=== PATIENT | male | born 1960 | race Caucasian/White ===

== ENCOUNTER 2021-01-01 14:25 | Inpatient (IN) | payer BC, OTHER ==
[~2021-01-01] VITALS: Ht 175 cm; Wt 100.9 kg
--- NOTE | 2021-01-01 14:32 | ED Chest Pain ---
General Stated Complaint: CHEST PAIN Source: patient History of Present Illness Date Seen by Provider: Jan 01, 2021 Time Seen by Provider: 14:32 Initial Comments 60-year-old male presents with chest pain. Patient reports he has been having chest pain on and off for about a week. He is currently not having any chest pain at this time. Patient reports he had chest pain about an hour ago but is resolved. Reports that if he belches it gets better. Patient has no cardiac history. He is diabetic, history of hypertension. Reports his hypertension is controlled with medication. Patient reports that he is here helping his son up at [employer] on a house. Patient was brought in by EMS. Patient received 324 mg aspirin at the outpatient clinic. Allergies and Home Medications Allergies Coded Allergies: No Known Drug Allergies (Unverified , 01/01/21) Patient Home Medication List Home Medication List Reviewed: Yes Review of Systems Review of Systems Constitutional: No chills, No fever EENTM: No Symptoms Reported Respiratory: Denies Cough, Denies Shortness of Air Cardiovascular: See HPI, Chest Pain Gastrointestinal: No Symptoms Reported Genitourinary: No Symptoms Reported Musculoskeletal: no symptoms reported Skin: no symptoms reported Psychiatric/Neurological: No Symptoms Reported Endocrine: No Symptoms Reported Hematologic/Lymphatic: No Symptoms Reported Past Iojfycw-Aomsin-Ixvzvf Hx Past Med/Social Hx: Reviewed Nursing Past Med/Soc Hx Physical Exam Vital Signs Vital Signs - First Documented 01/01/21 01/01/21 14:30 14:55 Temp 36.9 Pulse 92 Resp 20 B/P (MAP) 162/91 (114) Pulse Ox 94 O2 Delivery Room Air O2 Flow Rate 2.00 Capillary Refill : Height, Weight, BMI Height: '" Weight: lbs. oz. kg; BMI Method: General Appearance: No Apparent Distress, WD/WN HEENT: PERRL/EOMI Neck: Non Tender, Supple Respiratory: Lungs Clear, Normal Breath Sounds Cardiovascular: Regular Rate, Rhythm, No Edema Gastrointestinal: Non Tender, Soft Extremity: Normal Capillary Refill, Normal Inspection Neurologic/Psychiatric: Alert, Oriented x3, No Motor/Sensory Deficits, machine stemmer II- XII Norm as Tested Progress/Results/Core Measures Results/Orders Lab Results Laboratory Tests Test 01/01/21 14:35 Range/Units White Blood Count 7.9 4.3-11.0 10^3/uL Red Blood Count 5.23 4.30-5.52 10^6/uL Hemoglobin 14.8 13.3-17.7 g/dL Hematocrit 45 40-54 % Mean Corpuscular Volume 86 80-99 fL Mean Corpuscular Hemoglobin 28 25-34 pg Mean Corpuscular Hemoglobin Concent 33 32-36 g/dL Red Cell Distribution Width 12.5 10.0-14.5 % Platelet Count 196 130-400 10^3/uL Mean Platelet Volume 11.0 9.0-12.2 fL Immature Granulocyte % (Auto) 0 % Neutrophils (%) (Auto) 71 42-75 % Lymphocytes (%) (Auto) 19 12-44 % Monocytes (%) (Auto) 9 0-12 % Eosinophils (%) (Auto) 0 0-10 % Basophils (%) (Auto) 0 0-10 % Neutrophils # (Auto) 5.6 1.8-7.8 10^3/uL Lymphocytes # (Auto) 1.5 1.0-4.0 10^3/uL Monocytes # (Auto) 0.7 0.0-1.0 10^3/uL Eosinophils # (Auto) 0.0 0.0-0.3 10^3/uL Basophils # (Auto) 0.0 0.0-0.1 10^3/uL Immature Granulocyte # (Auto) 0.0 0.0-0.1 10^3/uL Prothrombin Time 12.9 12.2-14.7 SEC INR Comment 0.9 0.8-1.4 Activated Partial Thromboplast Time 28 24-35 SEC Sodium Level 134 L 135-145 MMOL/L Potassium Level 4.3 3.6-5.0 MMOL/L Chloride Level 99 98-107 MMOL/L Carbon Dioxide Level 24 21-32 MMOL/L Anion Gap 11 5-14 MMOL/L Blood Urea Nitrogen 22 H 7-18 MG/DL Creatinine 1.16 0.60-1.30 MG/DL Estimat Glomerular Filtration Rate > 60 BUN/Creatinine Ratio 19 Glucose Level 520 *H 70-105 MG/DL Calcium Level 9.4 8.5-10.1 MG/DL Corrected Calcium 9.6 8.5-10.1 MG/DL Magnesium Level 1.8 1.6-2.4 MG/DL Total Bilirubin 1.6 H 0.1-1.0 MG/DL Aspartate Amino Transf (AST/SGOT) 44 H 5-34 U/L Alanine Aminotransferase (ALT/SGPT) 21 0-55 U/L Alkaline Phosphatase 94 40-136 U/L Myoglobin 107.6 H 10.0-92.0 NG/ML Troponin I 9.779 *H <0.028 NG/ML Total Protein 7.7 6.4-8.2 GM/DL Albumin 3.8 3.2-4.5 GM/DL My Orders Orders - MONTANA,HUY L DO Cbc With Automated Diff (01/01/21 14:32) Magnesium (01/01/21 14:32) Ekg Tracing (01/01/21 14:32) Comprehensive Metabolic Panel (01/01/21 14:32) Myoglobin Serum (01/01/21 14:32) Protime With Inr (01/01/21 14:32) Partial Thromboplastin Time (01/01/21 14:32) O2 (01/01/21 14:32) Monitor-Rhythm Ecg Trace Only (01/01/21 14:32) Lipid Panel (01/02/21 06:00) Ed Iv/Invasive Line Start (01/01/21 14:32) Troponin I (01/01/21 14:32) Heparin (Bolus Per Protocol) (Heparin (B (01/01/21 14:43) Heparin (Bolus Per Protocol) (Heparin (B (01/01/21 15:00) Clopidogrel Tablet (Plavix Tablet) (01/01/21 15:00) Clopidogrel Tablet (Plavix Tablet) (01/01/21 14:43) Lidocaine 1% Inj 20 Ml (Xylocaine 1% Inj (01/01/21 14:48) Midazolam Injection (Versed Injection) (01/01/21 14:48) Fentanyl Injection (Sublimaze Injection (01/01/21 14:48) Heparin (Bolus Per Protocol) (Heparin (B (01/01/21 14:49) Ns Iv 1000 Ml (Sodium Chloride 0.9%) (01/01/21 14:49) Heparin ([facility]) (Heparin ([facility])) (01/01/21 14:49) Medications Given in ED Current Medications Medications Dose Ordered Sig/Ginger Route Start Time Stop Time Status Last Admin Dose Admin Clopidogrel Bisulfate 300 mg ONCE ONCE PO 01/01/21 15:00 01/01/21 15:01 DC 01/01/21 14:52 300 MG Vital Signs/I&O 01/01/21 01/01/21 01/01/21 14:30 14:30 14:55 Temp 36.9 36.9 Pulse 92 91 Resp 20 20 B/P (MAP) 162/91 (114) 154/90 Pulse Ox 94 97 O2 Delivery Room Air Room Air Nasal Cannula O2 Flow Rate 2.00 Progress Progress Note : Progress Note Patient with an EKG that was obtained at the outpatient clinic. New EKG shows significant new elevations in V1 through V5. Contacted Dr. Stallings. We will give him Plavix 100 mg, heparin. Patient was given 324 aspirin just prior to arrival. Patient will be sent to the [facility] for immediate revascularization Comment Significant ST elevation in V1 through V5, acute ME Departure Communication (Admissions) Time/Spoke to Admitting Phy: 14:45 Prepare for phlebotomist lab assistant Impression Primary Impression: ST elevation (STEMI) myocardial infarction Qualified Codes: I21.3 - ST elevation (STEMI) myocardial infarction of unspecified site Disposition: ADMITTED INPATIENT Condition: Critical Admissions Decision to Admit Reason: Admit from ER (General) Decision to Admit/Date: Jan 01, 2021 Time/Decision to Admit Time: 14:51 HUY MONTANA DO Jan 01, 2021 14:32
[2021-01-01] MEDS ORDERED: CLOPIDOGREL 300 MG (PLAVIX) TABLET PO ONE ×3 (14:43→16:01)
[2021-01-01] MEDS ORDERED: HEParin 1000 UNIT/ML (10ML VIAL) FOR BOLUS ONE ×2 (14:43→14:49)
[2021-01-01 14:44] LABS: BASOPHILS % (AUTO) 0 % (0-10); EOSINOPHILS % (AUTO) 0 % (0-10); HEMATOCRIT 45 % (40-54); HEMOGLOBIN 14.8 g/dL (13.3-17.7); LYMPHOCYTES # (AUTO) 1.5 10^3/uL (1.0-4.0); LYMPHOCYTES % (AUTO) 19 % (12-44); MEAN CORPUSCULAR HEMOGLOBIN 28 pg (25-34); MEAN CORPUSCULAR HGB CONC 33 g/dL (32-36); MEAN CORPUSCULAR VOLUME 86 fL (80-99); MONOCYTES # (AUTO) 0.7 10^3/uL (0.0-1.0); MONOCYTES % (AUTO) 9 % (0-12); NEUTROPHILS # (AUTO) 5.6 10^3/uL (1.8-7.8); NEUTROPHILS % (AUTO) 71 % (42-75); PLATELET COUNT 196 10^3/uL (130-400); WHITE BLOOD COUNT 7.9 10^3/uL (4.3-11.0)
[2021-01-01] MEDS ORDERED: MIDAZOLAM 5 MG/5 ML (VERSED) VIAL ONE (14:48)
[2021-01-01] MEDS ORDERED: fentaNYL INJ 100 MCG/2 ML AMP ONE ×2 (14:48→18:04)
[2021-01-01] MEDS ORDERED: LIDOCAINE 1% INJ 20 ML 20 ML VIAL ONE ×2 (14:48→14:58)
[2021-01-01] MEDS ORDERED: NS IV 1000 ML 1,000 ML ONE (14:49)
[2021-01-01] MEDS ORDERED: HEParin (CATH LAB) 2,000 ML IV ONE (14:49)
[2021-01-01 14:56] LABS: INR 0.9 (0.8-1.4); PROTHROMBIN TIME PATIENT 12.9 SEC (12.2-14.7)
[2021-01-01] MEDS ORDERED: HEParin 1000 UNIT/ML (10ML VIAL) FOR BOLUS IV SCH (15:00)
[2021-01-01 15:04] LABS: ALANINE AMINOTRANSFERASE 21 U/L (0-55); ALBUMIN 3.8 GM/DL (3.2-4.5); ALKALINE PHOSPHATASE 94 U/L (40-136); BILIRUBIN,TOTAL 1.6 MG/DL (0.1-1.0); BUN/CREATININE RATIO 19; CALCIUM 9.4 MG/DL (8.5-10.1); CARBON DIOXIDE 24 MMOL/L (21-32); CHLORIDE 99 MMOL/L (98-107); CREATININE SERUM 1.16 MG/DL (0.60-1.30); GFR ESTIMATED > 60; MAGNESIUM 1.8 MG/DL (1.6-2.4); POTASSIUM 4.3 MMOL/L (3.6-5.0); SODIUM 134 MMOL/L (135-145); TOTAL PROTEIN 7.7 GM/DL (6.4-8.2)
[2021-01-01] MEDS ORDERED: EPTIFIBATIDE BOLUS 20 ML IV ONE (15:10)
[2021-01-01] MEDS ORDERED: DOPamine DRIP 0 ML IV ONE (15:11)
[2021-01-01] MEDS ORDERED: inSUlin (REGULAR) HUMAN 1 UNIT/0.01 ML (CHARGE PER UNIT) ONE (15:12)
[2021-01-01 15:15] LABS: GLUCOSE 520 MG/DL (70-105)
[2021-01-01] MEDS ORDERED: NITRO DRIP 25000 MCG/D5W 250 ML IV ONE (16:27)
[2021-01-01] MEDS ORDERED: PATIENT MAY USE OWN MEDS, ALL PO SCH (16:30)
--- NOTE | 2021-01-01 16:43 | Cardiology History & Physical ---
HPI-Cardiology Cardiology H&P Date of Admission 01-01-21 Primary Care Physician Ada,Local Physician Attending Physician Saleem Dumont MD, MA FACP [facility] Consulting Physician MARIA R CC: Chest discomfort HPI 60 yo man who has been having intermittent chest discomfort for the last several days that have been lasting up to several hours. Discomfort has varied between m ild and severe, located in mid chest, feeling of pressure, radiating to back and shoulders, not associated with other symptoms. Was worse today. Came to urgent care and was sent to ED. Found to have marked ST elevation in anterior leads. Underwent emergency card cath and primary intervention to severely diseased prox LAD. Denies shortness of breath or palp or syncope. Denies n/v/d. Denies focal weakness. Notes gen malaise. Review of Systems-Cardiology Review of Systems Constitutional: malaise, tiredness; No weight loss, No weight gain Eyes: No vision change Ears/Nose/Throat: No ear discharge, No nasal drainage, No recent hearing loss Respiratory: As described under HPI Cardiovascular: As described under HPI Gastrointestinal: As described under HPI Genitourinary: No dysuria, No hematuria Musculoskeletal: No back pain, No joint pain Skin: No rash, No ulcerations Psychiatric/Neurological: No seizure, No focal weakness, No syncope Hematologic: No bleeding abnormalities AVO-Oxgebk-Zplyho Hx Patient Social History Smoking Status: Never a Smoker Have you traveled recently?: No Alcohol Use?: No Pt feels they are or have been: No Past Medical History PMH As described under Assessment. Family Medical History Family Medical History: Father had RI in his 70s. No other family h/o cardiac problems reported Allergies and Home Medications Allergies Coded Allergies: No Known Drug Allergies (Unverified , 01/01/21) Patient Home Medication List Home Medication List Reviewed: Yes Physical Exam-Cardiology Physical Exam Vital Signs/I&O 01/01/21 01/01/21 01/01/21 01/01/21 14:30 14:30 14:55 16:22 Temp 36.9 36.9 Pulse 92 91 85 Resp 20 20 9 B/P (MAP) 162/91 (114) 154/90 120/92 (101) Pulse Ox 94 97 99 O2 Delivery Room Air Room Air Nasal Cannula Nasal Cannula O2 Flow Rate 2.00 2.00 Capillary Refill : Less Than 3 Seconds Constitutional: AAO x 3, well-developed, well-nourished HEENT: EOMI, hearing is well preserved; No xanthelasmas are seen Neck: carotid pulses are 2 + bilaterally, with good upstrokes Respiratory: No accessory muscle use; other (good, bilateral air entry) Cardiovascular: regular rate-rhythm, S1 and S2, systolic murmur (soft [place] at card base) Gastrointestinal: No tender; soft; No guarding, No rebound; audible bowel sounds Extremities: No clubbing, No cyanosis, No significant edema Neurologic/Psychiatric: oriented x 3, other (moves all limbs equally) Skin: warm/dry; No cool, No rash on exposed areas, No ulcerations on exposed areas Data Review Labs Laboratory Tests 01/01/21 14:35: White Blood Count 7.9, Red Blood Count 5.23, Hemoglobin 14.8, Hematocrit 45, Mean Corpuscular Volume 86, Mean Corpuscular Hemoglobin 28, Mean Corpuscular Hemoglobin Concent 33, Red Cell Distribution Width 12.5, Platelet Count 196, L[place] n Platelet Volume 11.0, Immature Granulocyte % (Auto) 0, Neutrophils (%) (Auto) 71, Lymphocytes (%) (Auto) 19, Monocytes (%) (Auto) 9, Eosinophils (%) (Auto) 0, Basophils (%) (Auto) 0, Neutrophils # (Auto) 5.6, Lymphocytes # (Auto) 1.5, Monocytes # (Auto) 0.7, Eosinophils # (Auto) 0.0, Basophils # (Auto) 0.0, Immature Granulocyte # (Auto) 0.0, Prothrombin Time 12.9, INR Comment 0.9, Activated Partial Thromboplast Time 28, Sodium Level 134L, Potassium Level 4.3, Chloride Level 99, Carbon Dioxide Level 24, Anion Gap 11, Blood Urea Nitrogen 22H, Creatinine 1.16, Estimat Glomerular Filtration Rate > 60, BUN/Creatinine Ratio 19, Glucose Level 520*H, Calcium Level 9.4, Corrected Calcium 9.6, Magnesium Level 1.8, Total Bilirubin 1.6H, Aspartate Amino Transf (AST/SGOT) 44H , Alanine Aminotransferase (ALT/SGPT) 21, Alkaline Phosphatase 94, Myoglobin 107.6H, Troponin I 9.779*H, Total Protein 7.7, Albumin 3.8 Laboratory Tests 01/01/21 14:35 A/P-Cardiology Assessment/Admission Diagnosis CAD - Ac ant wall STEMI on 01-01-21 - Card cath on 01-01-21: 99% prox and mid LAD stented with Karlene 3.0 x 28 (proximal) and 3.0 x 12 (mid vessel), mild plaque LCX, mild to mod plaque of dominant RCA, LVEDP 28 mmHg, LVEF approx 40%, apical hypokinesis Cardiac risk factors - DM II, uncontrolled - H/o hypertension Admission Status: Inpatient Order (span 2 midnights) Reason for Inpatient Admission: Ac ant wall STEMI Discussion and Recomendations * DAPT * BB * Statin * Hosp consult for management of diabetes (Dr Castrejon called) * Monitor labs * I spoke with him and his family and answered their questions Clinical Quality Measures AMI/AHF: ASA po Prior to arrival: SALEEM Gregorio MD FACP [facility] Jan 01, 2021 16:43
[2021-01-01] MEDS ORDERED: ACETAMINOPHEN 325 MG TABLET PO PRN (16:45)
[2021-01-01] MEDS: NS IV 1000 ML 1,000 ML IV SCH (16:47)
[2021-01-01] MEDS ORDERED: INSU100I14 SQ (17:20)
[2021-01-01] MEDS ORDERED: ATOR40TA70 PO (17:20)
[2021-01-01] MEDS ORDERED: FINA5TAB6 PO (17:20)
[2021-01-01] MEDS ORDERED: LISI10TA25 PO (17:20)
[2021-01-01] MEDS ORDERED: INSU100I29 SQ (17:20)
[2021-01-01] MEDS ORDERED: PREG75CA75 PO (17:20)
[2021-01-01] MEDS ORDERED: TMSL.4C PO (17:20)
[2021-01-01] MEDS ORDERED: ESCI-2 PO (17:20)
[2021-01-01] MEDS ORDERED: EMPA10TA PO (17:20)
[2021-01-01] MEDS ORDERED: ATROPINE INJECTION 1 MG/10 ML SYR (ABBOTT) ONE (18:04)
[2021-01-01] MEDS ORDERED: morphine INJ 4 MG/ML 1 ML (VIAL/SYRINGE) ONE (18:35)
[2021-01-01] MEDS ORDERED: NITROGLYCERIN 2% OINT 1 GM UNIT DOSE PACKET ONE (18:35)
[2021-01-01] MEDS: morphine INJ 4 MG/ML 1 ML (VIAL/SYRINGE) IVP PRN ×4 (18:42→23:21)
[2021-01-01] MEDS: NITROGLYCERIN 2% OINT 1 GM UNIT DOSE PACKET TOP SCH (18:42)
--- NOTE | 2021-01-01 18:52 | CARDIAC CATHETERIZATION ---
DATE OF SERVICE: 01/01/2021 CARDIAC CATHETERIZATION AND CORONARY INTERVENTION REPORT The patient is a 60-year-old man who presented with acute anterior wall ST elevation myocardial infarction. Emergency cardiac catheterization was carried out. DESCRIPTION OF PROCEDURE: He was brought to the cardiac catheterization laboratory. The right groin was prepared and draped in the usual sterile fashion. Lidocaine 1% was used for local anesthesia. Modified Seldinger technique was used to advance a 6-[place] sheath in the right femoral artery. A 6-[place] JL4 guide catheter was used that did not engage the left coronary artery adequately. A 6-[place] JL3.5 guide catheter engaged fairly well. Left main coronary artery is short. The guide was going selectively into the left circumflex. We completed the diagnostic procedure and then carried out percutaneous intervention to the left anterior descending that is described below. Following completion of intervention to the left anterior descending, we carried out angiography of the right coronary artery with a 6-[place] JR4 diagnostic catheter. We then carried out left heart catheterization and left ventricular angiography with a 6-[place] pigtail catheter. We pulled back the pigtail catheter to the aortic root and aortic arch. An aortic root angiography was performed. The catheter was then removed. The sheath was sutured in place and the patient was transferred to the floor for manual sheath removal. PERCUTANEOUS INTERVENTION TO THE LEFT ANTERIOR DESCENDING: We used JL3.5 guide catheter that was selectively engaging the left circumflex. We were able to wire the left anterior descending and then advance the guide over the wire directed more towards the left anterior descending. We carried out balloon angioplasty of 99% stenosis in the proximal left anterior descending with Trek 2.5 x 20 mm balloon. This was then removed. Good antegrade flow was established with this procedure. We then stented the long diseased segment with Karlene 3.0 x 28 mm stent that was deployed at 18 atmospheres. Subsequent angiography revealed 0% residual stenosis at the previous site of 99% stenosis. However, there appeared to be a 70% stenosis in the mid left anterior descending artery to which we carried out further stenting with Karlene 3.0 x 12 mm stent. The stents do not overlap. At the end, normal antegrade flow was restored to the left anterior descending. The patient tolerated the procedure well. He had received 5000 units of intravenous heparin in the emergency room. In the chemical lab technician, he received 2000 units of additional intravenous heparin and double bolus of Integrilin. 300 mg of oral Plavix and 324 mg oral aspirin were given in the emergency room. Following completion of the coronary interventional procedure, he received additional 300 mg of Plavix. HEMODYNAMICS: Left ventricular end-diastolic pressure following coronary angiography and coronary intervention was 29 mmHg. There was no significant pressure gradient on pullback across the aortic valve. Ascending aortic pressure was 112/63 with a mean of 85 mmHg. LEFT VENTRICULAR ANGIOGRAPHY: Left ventricular angiography was carried out in the right anterior oblique projection. Global left ventricular systolic function is impaired. There is apical hypokinesis. Left ventricular ejection fraction is approximately 40%. CORONARY ANGIOGRAPHY: Left main coronary artery is short. Left anterior descending artery had 99% proximal stenosis and a 70% mid vessel stenosis. The proximal stenosis was stented with Karlene 3.0 x 28 mm stent and the mid vessel stenosis was stented with Karlene 3.0 x 12 mm stent. The results were good and there were no significant residual stenoses. The left circumflex artery has mild plaques. Right coronary artery is dominant and has stenosis of 30% to 40% in its proximal and distal portions. AORTIC ROOT ANGIOGRAPHY: Aortic root angiography did not indicate any ascending aortic aneurysm or dissection. The aortic valve exhibit good leaflet excursion. No significant aortic regurgitation was seen. The coronary arteries were identified and did not seem to have significant obstructive disease at the time of this angiogram because the left anterior descending artery had already been stented. CONCLUSIONS: 1. Coronary artery disease primarily consisting of 99% proximal stenosis and 70% mid vessel stenosis of the left anterior descending to which successful stenting was carried out (Karelne 3.0 x 28 mm to the proximal and Karlene 3.0 x 12 mm to the mid vessel lesion, nonoverlapping). The left circumflex and right coronary arteries have mild to moderate disease. Right coronary artery is dominant. 2. Impairment of global left ventricular systolic function with apical hypokinesis. Left ventricular ejection fraction of 40%. 3. Elevated left ventricular end-diastolic pressure. DISCUSSION AND RECOMMENDATIONS: Dual antiplatelet therapy has been initiated. Beta mark therapy and DAISY inhibitor therapy and statin therapy will be provided as tolerated. The patient has been hospitalized. Job ID: [id number] DocumentID: [id number] Dictated Date: 01/01/2021 17:56:33 Conveyor Man Date: 01/01/2021 18:51:37 Dictated By: SORAYA MAYO MD, MA, FACP, FACC,
[2021-01-01] MEDS: inSUlin ASPART (NovoLOG) 1 UNIT/0.01 ML (CHARGE PER UNIT) SC SCH (23:22)
[2021-01-02] MEDS: NITROGLYCERIN 2% OINT 1 GM UNIT DOSE PACKET TOP SCH ×4 (00:05→18:01)
[2021-01-02] MEDS: morphine INJ 4 MG/ML 1 ML (VIAL/SYRINGE) IVP PRN ×4 (04:13→19:27)
[2021-01-02] MEDS: ONDANSETRON 4 MG/2 ML (SDV) Z0FRAN IVP PRN ×3 (04:22→20:57)
[2021-01-02 04:23] LABS: HEMOGLOBIN 13.2 g/dL (13.3-17.7); MEAN PLATELET VOLUME 10.9 fL (9.0-12.2); WHITE BLOOD COUNT 10.4 10^3/uL (4.3-11.0)
[2021-01-02 04:46] LABS: BUN/CREATININE RATIO 23; CALCIUM 8.6 MG/DL (8.5-10.1); CARBON DIOXIDE 19 MMOL/L (21-32); CHLORIDE 103 MMOL/L (98-107); CHOLESTEROL 124 MG/DL (< 200); CREATININE SERUM 0.86 MG/DL (0.60-1.30); GFR ESTIMATED > 60; GLUCOSE 256 MG/DL (70-105); HDL CHOLESTEROL 36 MG/DL (40-60); MAGNESIUM 1.8 MG/DL (1.6-2.4); PHOSPHORUS 4.1 MG/DL (2.3-4.7); POTASSIUM 4.2 MMOL/L (3.6-5.0); SODIUM 135 MMOL/L (135-145); TRIGLYCERIDES 82 MG/DL (<150); VLDL CHOLESTEROL 16 MG/DL (5-40)
[2021-01-02] MEDS: KCL 20 MEQ TAB (K-DUR) PO SCH (05:06)
[2021-01-02] MEDS: MAGNESIUM 1 GM/100 ML IVPB 100 ML IV SCH (05:06)
[2021-01-02] MEDS: POTASSIUM CL 10MEQ/50ML IVPB 50 ML IV SCH (05:06)
[2021-01-02] MEDS: inSUlin ASPART (NovoLOG) 1 UNIT/0.01 ML (CHARGE PER UNIT) SC SCH ×7 (06:05→20:57)
[2021-01-02] MEDS ORDERED: inSUlin ASPART (NovoLOG) 1 UNIT/0.01 ML (CHARGE PER UNIT) SC SCH (07:00)
[2021-01-02] MEDS: CLOPIDOGREL 75 MG (PLAVIX) TABLET PO SCH (07:53)
[2021-01-02] MEDS: ASPIRIN 81 MG CHEW (CHILDREN'S ASA) PO SCH (07:53)
[2021-01-02] MEDS: NS IV 1000 ML 1,000 ML IV SCH (07:55)
[2021-01-02] MEDS ORDERED: ENOXAPARIN 40 MG/0.4 ML (LOVENOX) SYR SC SCH ×2 (09:00→22:45)
[2021-01-02] MEDS: FINASTERIDE (PROSCAR) 5 MG TAB PO SCH (09:28)
[2021-01-02] MEDS: PREGABALIN 75 MG (LYRICA) CAP PO SCH ×2 (09:28→20:57)
[2021-01-02] MEDS: TAMSULOSIN 0.4 MG (FLOMAX) CAP PO SCH ×2 (09:29→16:26)
[2021-01-02] MEDS ORDERED: ASPI-1238 PO (09:32)
[2021-01-02] MEDS: lisINopril 5 MG (PRINIVIL) TABLET PO SCH (10:11)
--- NOTE | 2021-01-02 11:02 | Consultation - Hospitalist ---
HPI History of Present Illness: HPI/Chief Complaint Edgardo Villafana is a 60-year-old male with past medical history of hypertension, hyperlipidemia, insulin-dependent diabetes, BPH, who presented with chest pain and was admitted with ST elevation RI. He was taken to the [facility] and had two stents placed. Upon my examination he is feeling much better. He denies chest pain. He denies shortness of breath. He denies diaphoresis. He denies nausea and vomiting. He did have an episode of vomiting last night. Source: patient Exam Limitations: no limitations Date Seen 01/02/21 Attending Physician Saleem Dumont MD Facp [facility] PCP No,Local Physician Referring Physician Date of Admission Jan 01, 2021 at 16:20 Home Medications & Allergies Home Medications Reviewed patient Home Medication Reconciliation performed by pharmacy medication reconciliations foundry technician and/or nursing. Patients Allergies have been reviewed. Allergies Allergies Coded Allergies No Known Drug Allergies (Unverified01/01/21) Past Ricbhuu-Rgjaul-Qmkisp Hx Past Med/Social Hx: Reviewed Nursing Past Med/Soc Hx Patient Social History Smoking Status: Never a Smoker Recent Foreign Travel: No Contact w/other who traveled: No Recent Infectious Disease Expo: No Review of Systems Constitutional: no symptoms reported EENTM: no symptoms reported Respiratory: no symptoms reported Cardiovascular: chest pain Genitourinary: no symptoms reported Musculoskeletal: no symptoms reported Skin: no symptoms reported Psychiatric/Neurological: No Symptoms Reported Physical Exam Physical Exam Vital Signs Vital Signs - First Documented 01/01/21 01/01/21 14:30 14:55 Temp 36.9 Pulse 92 Resp 20 B/P (MAP) 162/91 (114) Pulse Ox 94 O2 Delivery Room Air O2 Flow Rate 2.00 Capillary Refill : Less Than 3 Seconds Height, Weight, BMI Height: '" Weight: lbs. oz. kg; 32.58 BMI Method: General Appearance: No Apparent Distress, WD/WN HEENT: PERRL/EOMI, Pharynx Normal Neck: Normal Inspection, Supple Respiratory: Lungs Clear, Normal Breath Sounds, No Respiratory Distress Cardiovascular: Regular Rate, Rhythm, No Edema, No Murmur Gastrointestinal: Normal Bowel Sounds, Non Tender, Soft Extremity: Normal Inspection, Non Tender, No Pedal Edema Neurologic/Psychiatric: Alert, Oriented x3, No Motor/Sensory Deficits, Normal Mood/Affect Skin: Normal Color, Warm/Dry Results Results/Procedures Labs Laboratory Tests 01/01/21 14:35 01/02/21 03:55 Patient resulted labs reviewed. Imaging: Reviewed Imaging Report Assessment/Plan Assessment and Plan Assess & Plan/Chief Complaint STEMI CAD HTN HLD EKG revealed STEMI Cardiology consulted, appreciate assistance Left heart cath revealed LAD stenosis and two stents were placed Continue ASA Started on Plavix Increased Lipitor Started on Metoprolol Continue Lisinopril T2DM with hyperglycemia Levemir Novolog with meals Sliding scale insulin BPH Continue home meds Obesity Clinically significant, no acute management needs DVT prophylaxis: Lovenox Diagnosis/Problems Diagnosis/Problems (1) Acute ST elevation myocardial infarction (STEMI) of anterior wall Status: Acute (2) CAD (coronary artery disease) Status: Acute Qualifiers: Coronary Disease-Associated Artery/Lesion type: [place] artery [place] vs. transplanted heart: [place] heart (3) HTN (hypertension) Status: Chronic Qualifiers: Hypertension type: essential hypertension Qualified Codes: I10 - Essential (primary) hypertension (4) HLD (hyperlipidemia) Status: Chronic (5) Obesity Status: Chronic Qualifiers: Obesity type: due to excess calories Serious obesity comorbidity presence: with serious comorbidity Body mass index: BMI 34.0-34.9 (6) BPH (benign prostatic hyperplasia) Status: Chronic (7) T2DM (type 2 diabetes mellitus) Status: Acute Qualifiers: Diabetes mellitus usp insulin use: with oil heaterman use Diabetes mellitus complication status: with hyperglycemia Qualified Codes: E11.65 - Type 2 diabetes mellitus with hyperglycemia; Z79.4 - long-term (current) use of insulin Clinical Quality Measures AMI/AHF: ASA po Prior to arrival: ANDER Giraldo MD Jan 02, 2021 11:02
[2021-01-02 11:48] LABS: ABG BASE EXCESS 0.1 MMOL/L (-2.5-2.5); ABG OXYGEN SATURATION 81 % (94-100); ABG PCO2 42 MMHG (35-45); ABG PH 7.38 (7.37-7.43); ABG PO2 51 MMHG (79-93); ABG TCO2 25.9 MMOL/L (21.0-31.0); ALLENS TEST YES-POS
[2021-01-02 11:49] LABS: INSPIRED O2 15 L; PATIENT TEMP 36.6; VENTILATOR NO
[2021-01-02] MEDS ORDERED: FUROSEMIDE 40 MG/4 ML INJ (LASIX) ONE (11:51)
--- NOTE | 2021-01-02 11:51 | Diagnostic Imaging Report ---
Indication: Hypoxemia Portable chest 11:40 AM Heart size and pulmonary vascularity are normal. Lungs are clear IMPRESSION: Negative chest. There are no effusions or pneumothoraces. Dictated by: Dictated on workstation # [id number]
[2021-01-02] MEDS ORDERED: FUROSEMIDE 40 MG/4 ML INJ (LASIX) IVP ONE ×2 (12:00→22:45)
[2021-01-02] MEDS ORDERED: PANTOPRAZOLE 40 MG (PROTONIX) VIAL IV NR (14:45)
[2021-01-02] MEDS: IBUPROFEN 600 MG (MOTRIN) TAB PO SCH ×2 (14:53→20:57)
--- NOTE | 2021-01-02 15:21 | Progress Note - Cardiology ---
Cardiology SOAP Progress Note Subjective: Continues to have episodes of chest pain, sometimes worse with deep breathing No palp or syncope Mild shortness of breath No focal weakness Gen malaise Intermittent nausea and vomiting Objective: I&O/Vital Signs 01/02/21 01/02/21 01/02/21 01/02/21 04:00 04:11 05:00 06:00 Pulse 79 78 76 Resp 10 23 7 B/P (MAP) 101/66 (78) 91/60 (70) 95/60 (72) Pulse Ox 91 96 90 O2 Delivery Nasal Cannula Nasal Cannula Nasal Cannula Nasal Cannula O2 Flow Rate 2.00 2.00 2.00 2.00 01/02/21 01/02/21 01/02/21 01/02/21 06:12 07:00 07:00 07:21 Temp 37.1 Pulse 70 76 Resp 13 B/P (MAP) 159/88 (111) Pulse Ox 95 90 O2 Delivery Nasal Cannula Nasal Cannula O2 Flow Rate 2.00 2.00 01/02/21 01/02/21 01/02/21 01/02/21 07:52 08:00 08:00 09:00 Temp 36.4 Pulse 74 73 Resp 15 18 B/P (MAP) 103/61 (75) 92/58 (69) Pulse Ox 92 90 O2 Delivery Nasal Cannula Nasal Cannula Nasal Cannula Nasal Cannula O2 Flow Rate 2.00 2.00 2.00 2.00 01/02/21 01/02/21 01/02/21 01/02/21 10:00 11:00 11:32 11:46 Temp 36.6 Pulse 74 73 Resp 27 B/P (MAP) 95/62 (73) 93/61 (72) Pulse Ox 89 91 O2 Delivery Nasal Cannula Nasal Cannula OxyMask O2 Flow Rate 2.00 2.00 15.00 01/02/21 01/02/21 01/02/21 01/02/21 12:00 12:00 12:05 12:44 Pulse 73 71 Resp 19 B/P (MAP) 107/79 (88) Pulse Ox 93 O2 Delivery Vapotherm Vapotherm Vapotherm O2 Flow Rate 40.00 40.00 40.00 100.00 100.00 FiO2 100 01/02/21 01/02/21 01/02/21 13:00 13:51 14:00 Pulse 84 69 Resp 15 22 B/P (MAP) 161/94 (116) 92/61 (71) Pulse Ox 92 93 O2 Delivery Vapotherm Vapotherm Vapotherm O2 Flow Rate 40.00 35.00 35.00 100.00 90.00 90.00 01/02/21 00:00 Intake Total 50 ml Output Total 850 ml Balance -800 ml Constitutional: AAO x 3, well-developed, well-nourished Respiratory: No accessory muscle use; other (good, bilateral air entry) Cardiovascular: regular rate-rhythm, S1 and S2, systolic murmur (soft [place] at card base) Gastrointestional: No tender; soft; No guarding, No rebound; audible bowel sounds Extremities: No clubbing, No cyanosis, No significant edema Neurologic/Psychiatric: oriented x 3, other (moves all limbs equally) Skin: warm/dry; No cool, No rash on exposed areas, No ulcerations on exposed areas Results/Procedures: Labs Laboratory Tests 01/01/21 20:44: Glucometer 276H 01/02/21 03:55: White Blood Count 10.4, Red Blood Count 4.72, Hemoglobin 13.2L, Hematocrit 41, Mean Corpuscular Volume 87, Mean Corpuscular Hemoglobin 28, Mean Corpuscular Hemoglobin Concent 32, Red Cell Distribution Width 12.6, Platelet Count 180, Mean Platelet Volume 10.9, Sodium Level 135, Potassium Level 4.2, Chloride Level 103, Carbon Dioxide Level 19L, Anion Gap 13, Blood Urea Nitrogen 20H, Creatinine 0.86, Estimat Glomerular Filtration Rate > 60, BUN/Creatinine Ratio 23, Glucose Level 256H, Calcium Level 8.6, Phosphorus Level 4.1, Magnesium Level 1.8, Troponin I 21.532*H, Triglycerides Level 82, Cholesterol Level 124, LDL Cholesterol Direct 71, VLDL Cholesterol 16, HDL Cholesterol 36L 01/02/21 11:02: Glucometer 268H 01/02/21 11:40: Blood Gas Puncture Site LT RAD, Blood Gas Patient Temperature 36.6, Arterial Blood pH 7.38, Arterial Blood Partial Pressure CO2 42, Arterial Blood Partial Pressure O2 51L, Arterial Blood HCO3 25, Arterial Blood Total CO2 25.9, Arterial Blood Oxygen Saturation 81L, Arterial Blood Base Excess 0.1, Allan Test YES-POS, Blood Gas Ventilator Setting NO, Blood Gas Inspired Oxygen 15 L 01/02/21 13:10: Troponin I 17.208*H Laboratory Tests 01/01/21 14:35 01/02/21 03:55 A/P: Assessment: CAD - Ac ant wall STEMI on 01-01-21 - Card cath on 01-01-21: 99% prox and mid LAD stented with Karlene 3.0 x 28 (proximal) and 3.0 x 12 (mid vessel), mild plaque LCX, mild to mod plaque of dominant RCA, LVEDP 28 mmHg, LVEF approx 40%, apical hypokinesis - persistent ST elevation in ant leads after PCI, 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 LVEF 40% with apical hypokinesis/akinesis on card cath of 01-01-21; LVEF 35-40% with apical hypokinesis/akinesis on echo of 01-02-21 Cardiac risk factors - DM II, uncontrolled - H/o hypertension Plan: * Suspect post-infarction pericarditis. Enzyme pattern is not consistent with a new [place]. Add NSAIDs and also add PPI * Appreciate help from the Hospitalist Sridhar * Keep under close observation * Monitor labs Clinical Quality Measures AMI/AHF: ASA po Prior to arrival: SORAYA Gregorio MD FACP FAC CCDS Jan 02, 2021 15:21
--- NOTE | 2021-01-02 19:40 | Physician Query Clarification ---
"Physician Query-General Query to Physician: The medical record reflects the following clinical scenario: History/Risk factors: STEMI, Obesity Clinical Findings: SpO2 89% on 2L, PaO2 51, RR 20 - 27 Treatment: ICU admission, Supplemental O2 up to 100%, Vapotherm, Question: What condition best reflects the above clinical scenario? Please document response in the Progress notes or Discharge Summary. 1. Acute hypoxic Respiratory failure 2. Other, with explanation of clinical findings 3. Clinically undetermined, no explanation for clinical findings Please remember a lack of response to the above will prompt a phone page by CDI/coding staff. In responding to this query, please exercise your independent professional ju dgment. The purpose of this communication is to more accurately reflect the complexity of your patients condition. The fact that a question is asked does not imply that any particular answer is desired or expected. Thank you for timely response to this clarification. Laura Griffith, MSN, RN RN Specialist-Clinical Doc Improvement CD -Health Info Mgmt Operations [address] [facility] t: [phone] | f: [phone] If you are unable to reach me at my extension, I may be working from home. Please contact me at [phone] PHYSICIAN RESPONSE: Based on the clinical findings in the record, please respond to the query above on this document as an addendum. Physician Response: Physician Response 3 If you have questions please contact: Cisco Network Architect: Ext: Thank you for your time and cooperation. Clinical Media Account Executive/Cisco Network Architect This is a permanent part of the medical record LAURA GRIFFITH Jan 02, 2021 19:40 SORAYA MAYO MD [facility] Jan 03, 2021 14:35"
[2021-01-02] MEDS: FAMOTIDINE 20 MG (PEPCID) TABLET PO SCH (20:57)
[2021-01-02] MEDS ORDERED: DIGOXIN 0.25 MG/ML (LANOXIN) 2 ML AMP IV ONE (23:10)
[2021-01-03] MEDS: POTASSIUM CL 10MEQ/50ML IVPB 50 ML IV SCH ×3 (00:13→04:28)
[2021-01-03] MEDS: inSUlin ASPART (NovoLOG) 1 UNIT/0.01 ML (CHARGE PER UNIT) SC SCH ×9 (01:00→20:50)
[2021-01-03 03:41] LABS: BASOPHILS % (AUTO) 0 % (0-10); EOSINOPHILS % (AUTO) 0 % (0-10); HEMATOCRIT 36 % (40-54); HEMOGLOBIN 11.7 g/dL (13.3-17.7); LYMPHOCYTES # (AUTO) 2.3 10^3/uL (1.0-4.0); LYMPHOCYTES % (AUTO) 23 % (12-44); MEAN CORPUSCULAR HEMOGLOBIN 28 pg (25-34); MEAN CORPUSCULAR HGB CONC 32 g/dL (32-36); MEAN CORPUSCULAR VOLUME 88 fL (80-99); MEAN PLATELET VOLUME 11.7 fL (9.0-12.2); MONOCYTES # (AUTO) 1.2 10^3/uL (0.0-1.0); MONOCYTES % (AUTO) 12 % (0-12); NEUTROPHILS # (AUTO) 6.4 10^3/uL (1.8-7.8); NEUTROPHILS % (AUTO) 64 % (42-75); PLATELET COUNT 171 10^3/uL (130-400)
[2021-01-03 04:05] LABS: ALBUMIN 3.1 GM/DL (3.2-4.5); CHLORIDE 99 MMOL/L (98-107); POTASSIUM 4.5 MMOL/L (3.6-5.0); SODIUM 132 MMOL/L (135-145)
[2021-01-03 04:06] LABS: CALCIUM 8.5 MG/DL (8.5-10.1)
[2021-01-03 04:07] LABS: GLUCOSE 144 MG/DL (70-105); TOTAL PROTEIN 6.4 GM/DL (6.4-8.2)
[2021-01-03 04:09] LABS: BILIRUBIN,TOTAL 1.2 MG/DL (0.1-1.0); CARBON DIOXIDE 22 MMOL/L (21-32)
[2021-01-03 04:11] LABS: ALKALINE PHOSPHATASE 68 U/L (40-136); CREATININE SERUM 1.02 MG/DL (0.60-1.30); GFR ESTIMATED > 60; PHOSPHORUS 3.9 MG/DL (2.3-4.7)
[2021-01-03 04:12] LABS: BUN/CREATININE RATIO 33
[2021-01-03 04:14] LABS: ALANINE AMINOTRANSFERASE 14 U/L (0-55)
[2021-01-03] MEDS: KCL 20 MEQ TAB (K-DUR) PO SCH (04:28)
[2021-01-03] MEDS: MAGNESIUM 1 GM/100 ML IVPB 100 ML IV SCH (04:28)
[2021-01-03] MEDS: ASPIRIN 81 MG CHEW (CHILDREN'S ASA) PO SCH (08:10)
[2021-01-03] MEDS: IBUPROFEN 600 MG (MOTRIN) TAB PO SCH ×3 (08:10→20:41)
[2021-01-03] MEDS: PREGABALIN 75 MG (LYRICA) CAP PO SCH ×2 (08:10→20:41)
[2021-01-03] MEDS: FAMOTIDINE 20 MG (PEPCID) TABLET PO SCH ×2 (08:10→20:41)
[2021-01-03] MEDS: lisINopril 5 MG (PRINIVIL) TABLET PO SCH (08:10)
[2021-01-03] MEDS: PANTOPRAZOLE 40 MG (PROTONIX) TAB PO SCH (08:10)
[2021-01-03] MEDS: CLOPIDOGREL 75 MG (PLAVIX) TABLET PO SCH (08:10)
[2021-01-03] MEDS: FINASTERIDE (PROSCAR) 5 MG TAB PO SCH (08:10)
[2021-01-03] MEDS: ENOXAPARIN 40 MG/0.4 ML (LOVENOX) SYR SC SCH ×2 (08:10→20:40)
[2021-01-03] MEDS: ONDANSETRON 4 MG/2 ML (SDV) Z0FRAN IVP PRN (08:58)
[2021-01-03 09:28] LABS: ABG BASE EXCESS 1.1 MMOL/L (-2.5-2.5); ABG OXYGEN SATURATION 89 % (94-100); ABG PCO2 41 MMHG (35-45); ABG PH 7.41 (7.37-7.43); ABG PO2 61 MMHG (79-93); ABG TCO2 26.7 MMOL/L (21.0-31.0)
[2021-01-03 09:36] LABS: INSPIRED O2 30L 85%; PATIENT TEMP 36.6; VENTILATOR NO
--- NOTE | 2021-01-03 09:40 | Diagnostic Imaging Report ---
INDICATION: Hypoxia Comparison with prior study from January 022020. FINDINGS: The overall pulmonary aeration appears slightly improved compared to the prior study. There are mild features of bibasilar discoid atelectasis. There appear to chronic interstitial changes within the lungs. Pulmonary vascularity is appropriate. There is no effusion or pneumothorax. Heart size is stable. IMPRESSION: Low lung volumes with mild bibasilar discoid atelectasis. There are what are likely chronic pulmonary interstitial changes present. No superimposed focal infiltrate demonstrated. Pulmonary vascularity appears is appropriate. Dictated by: Dictated on workstation # [id number]
[2021-01-03] MEDS ORDERED: IOHEXOL 300 MG/ML 100 ML (OMNIPAQUE 300) VIAL IV ONE (10:15)
[2021-01-03] MEDS ORDERED: NS 100 ML (IVPB) BAG IV ONE (10:15)
--- NOTE | 2021-01-03 12:05 | Diagnostic Imaging Report ---
PROCEDURE: CT angiography of the chest with contrast. TECHNIQUE: Multiple contiguous axial images were obtained through the chest after uneventful bolus administration of intravenous contrast. 3D reconstructed CTA MIP acquisitions were also performed. Auto Exposure Controls were utilized during the CT exam to meet ALARA standards for radiation dose reduction. INDICATION: Hypoxia. Comparison made to the chest radiograph performed at the same day. Findings: There is adequate opacification of the pulmonary arteries for diagnostic assessment. There are no findings of a pulmonary artery filling defect to suggest pulmonary embolism. There is no evidence of right ventricular strain. The thoracic aorta is normal in caliber with limited contrast opacification given contrast timing. There is no pericardial collection. There is a left anterior descending artery stent. There are no findings of mediastinal or hilar adenopathy There is dense consolidation present within both of the lower lobes with associated air bronchograms. The findings could relate to dependent atelectasis but pneumonia cannot be radiographically excluded. There is no significant pleural fluid. The aerated portions of the the lungs demonstrate no suspicious pulmonary nodule or mass. The upper abdomen demonstrates no acute process. There are degenerative changes present within the spine without acute or suspicious osseous abnormality. IMPRESSION: 1. No CT angiographic evidence of pulmonary embolism. 2. Significant lower lobe consolidation bilaterally with associated air bronchograms. While this could reflect atelectasis the possibility of bibasilar pneumonia would also need to be considered. 3. No suspicious pulmonary nodule or mass. 4. No effusion or pneumothorax. 5. No thoracic adenopathy. Dictated by: Dictated on workstation # [id number]
--- NOTE | 2021-01-03 12:28 | Progress Note - Hospitalist ---
Subjective HPI/CC On Admission Date Seen by Provider: Jan 03, 2021 Time Seen by Provider: 09:45 Edgardo Villafana is a 60-year-old male with past medical history of hypertension, hyperlipidemia, insulin-dependent diabetes, BPH, who presented with chest pain and was admitted with ST elevation [place]. He was taken to the Car Lot Attendant and had two stents placed. Upon my examination he is feeling much better. He denies chest pain. He denies shortness of breath. He denies diaphoresis. He denies nausea and vomiting. He did have an episode of vomiting last night. Subjective/Events-last exam He reports worsening shortness of breath. He is not having any more chest pain. He has been having cough productive of yellowish sputum. He denies fevers and chills. Objective Exam Vital Signs Vital Signs Date Time Temp Pulse Resp B/P (MAP) Pulse Ox O2 Delivery O2 Flow Rate FiO2 01/03/21 12:04 36.7 01/03/21 12:00 70 14 133/74 (93) 93 Vapotherm 30.00 85.00 01/03/21 11:09 85 Capillary Refill : Less Than 3 Seconds General Appearance: No Apparent Distress, Obese Respiratory: No Respiratory Distress, Decreased Breath Sounds, Other (Wearing Vapotherm) Cardiovascular: Regular Rate, Rhythm, No Murmur Gastrointestinal: Normal Bowel Sounds, Non Tender, Soft Extremity: Normal Inspection, Non Tender, Pedal Edema Neurologic/Psychiatric: Alert, Oriented x3, No Motor/Sensory Deficits, Normal Mood/Affect Skin: Normal Color, Warm/Dry Results/Procedures Lab Laboratory Tests 01/03/21 03:00 Patient resulted labs reviewed. Imaging: Reviewed Imaging Report Assessment/Plan Assessment and Plan Assess & Plan/Chief Complaint Acute respiratory failure with hypoxia Pneumonia Significantly worsening hypoxia over past 24 hours Requiring Vapotherm BNP mildly elevated Ddimer mildly elevated Chest xray with atelectasis, no infiltrates Flu negative COVID TRAVIS negative CT Chest without PE, bibasilar consolidations Begin Zosyn STEMI Pericarditis CAD HTN HLD Cardiology consulted, appreciate assistance Left heart cath revealed LAD stenosis and two stents were placed Continue ASA, Plavix, Lipitor, Metoprolol, and Lisinopril T2DM with hyperglycemia A1C 12.7% Levemir Novolog with meals Sliding scale insulin BPH Continue home meds Obesity Clinically significant, no acute management needs DVT prophylaxis: Lovenox Diagnosis/Problems Diagnosis/Problems (1) Acute respiratory failure with hypoxia Status: Acute (2) PNA (pneumonia) Status: Acute (3) Acute ST elevation myocardial infarction (STEMI) of anterior wall Status: Acute (4) CAD (coronary artery disease) Status: Acute Qualifiers: Coronary Disease-Associated Artery/Lesion type: [place] artery [place] vs. transplanted heart: [place] heart (5) HTN (hypertension) Status: Chronic Qualifiers: Hypertension type: essential hypertension Qualified Codes: I10 - Essential (primary) hypertension (6) HLD (hyperlipidemia) Status: Chronic (7) Obesity Status: Chronic Qualifiers: Obesity type: due to excess calories Serious obesity comorbidity presence: with serious comorbidity Body mass index: BMI 34.0-34.9 (8) BPH (benign prostatic hyperplasia) Status: Chronic (9) T2DM (type 2 diabetes mellitus) Status: Acute Qualifiers: Diabetes mellitus adjunct faculty for medical terminology insulin use: with adjunct faculty for medical terminology use Diabetes mellitus complication status: with hyperglycemia Qualified Codes: E11.65 - Type 2 diabetes mellitus with hyperglycemia; Z79.4 - extermination supervisor (current) use of insulin Clinical Quality Measures AMI/AHF: ASA po Prior to arrival: ANDER Giraldo MD Jan 03, 2021 12:28
[2021-01-03] MEDS ORDERED: PIPERACILLIN/TAZOBACTAM (BULK) 4.5 GM in NS (IVPB) 100 ML IV NR (13:00)
--- NOTE | 2021-01-03 13:50 | Progress Note - Cardiology ---
Cardiology SOAP Progress Note Subjective: Chest pain has subsided after initiation of ibuprofen, but has continued to have nausea and vomiting Oxygen sat has been intermittently low, but he denies shortness of breath Denies palp or syncope Gen malaise present Objective: I&O/Vital Signs 01/03/21 01/03/21 01/03/21 01/03/21 02:00 02:16 03:00 04:00 Pulse 101 60 66 Resp 16 18 16 B/P (MAP) 92/65 (74) 89/59 (69) 89/54 (66) Pulse Ox 97 96 97 93 O2 Delivery Vapotherm Vapotherm Vapotherm Vapotherm O2 Flow Rate 35.00 35.00 35.00 35.00 95.00 95.00 95.00 FiO2 95 01/03/21 01/03/21 01/03/21 01/03/21 04:26 05:00 06:00 06:02 Pulse 65 66 Resp 19 17 B/P (MAP) 100/55 (70) 99/60 (73) Pulse Ox 97 92 O2 Delivery Vapotherm Vapotherm Vapotherm Vapotherm O2 Flow Rate 35.00 35.00 35.00 20.00 95.00 95.00 70.00 FiO2 95 01/03/21 01/03/21 01/03/21 01/03/21 07:00 07:00 07:41 08:00 Temp 36.4 Pulse 65 67 71 Resp 22 18 B/P (MAP) 100/59 (73) 121/64 (83) Pulse Ox 92 90 O2 Delivery Vapotherm Vapotherm O2 Flow Rate 20.00 20.00 70.00 70.00 01/03/21 01/03/21 01/03/21 01/03/21 08:13 08:15 09:00 10:00 Pulse 76 102 Resp 24 B/P (MAP) 123/64 (83) 161/92 (115) Pulse Ox 89 91 93 O2 Delivery Vapotherm Vapotherm Vapotherm Vapotherm O2 Flow Rate 20.00 25.00 30.00 30.00 85.00 85.00 FiO2 70 80 01/03/21 01/03/21 01/03/21 01/03/21 11:00 11:09 12:00 12:00 Pulse 71 70 Resp 18 14 B/P (MAP) 112/63 (79) 133/74 (93) Pulse Ox 94 96 93 O2 Delivery Vapotherm Vapotherm Vapotherm Vapotherm O2 Flow Rate 30.00 30.00 30.00 30.00 85.00 85.00 FiO2 85 85 01/03/21 01/03/21 01/03/21 12:04 12:47 12:57 Temp 36.7 Pulse 69 O2 Delivery Vapotherm O2 Flow Rate 30.00 75.00 01/03/21 00:00 Intake Total 400 ml Output Total 801 ml Balance -401 ml Constitutional: AAO x 3, well-developed, well-nourished Respiratory: No accessory muscle use; other (good, bilateral air entry) Cardiovascular: regular rate-rhythm, S1 and S2, systolic murmur (soft [place] at card base) Gastrointestional: No tender; soft; No guarding, No rebound; audible bowel sounds Extremities: No clubbing, No cyanosis, No significant edema Neurologic/Psychiatric: oriented x 3, other (moves all limbs equally) Skin: warm/dry; No cool, No rash on exposed areas, No ulcerations on exposed areas Results/Procedures: Labs Laboratory Tests 01/02/21 16:01: Glucometer 254H 01/02/21 20:26: Glucometer 135H 01/03/21 00:50: Glucometer 111H 01/03/21 03:00: White Blood Count 10.0, Red Blood Count 4.15L, Hemoglobin 11.7L, Hematocrit 36L, Mean Corpuscular Volume 88, Mean Corpuscular Hemoglobin 28, Mean Corpuscular Hemoglobin Concent 32, Red Cell Distribution Width 12.8, Platelet Count 171, Mean Platelet Volume 11.7, Immature Granulocyte % (Auto) 0, Neutrophils (%) (Auto) 64, Lymphocytes (%) (Auto) 23, Monocytes (%) (Auto) 12, Eosinophils (%) (Auto) 0, Basophils (%) (Auto) 0, Neutrophils # (Auto) 6.4, Lymphocytes # (Auto) 2.3, Monocytes # (Auto) 1.2H, Eosinophils # (Auto) 0.0, Basophils # (Auto) 0.0, Immature Granulocyte # (Auto) 0.0, D-Dimer 1.74H, Sodium Level 132L, Potassium Level 4.5, Chloride Level 99, Carbon Dioxide Level 22, Anion Gap 11, Blood Urea Nitrogen 34H, Creatinine 1.02, Estimat Glomerular Filtration Rate > 60, BUN/Creatinine Ratio 33, Glucose Level 144H, Calcium Level 8.5, Corrected Calcium 9.2, Phosphorus Level 3.9, Magnesium Level 2.0, Total Bilirubin 1.2H, Aspartate Amino Transf (AST/SGOT) 24, Alanine Aminotransferase (ALT/SGPT) 14, Alkaline Phosphatase 68, B-Type Natriuretic Peptide 366.6H, Total Protein 6.4, Albumin 3.1L, Procalcitonin 1.29H 01/03/21 05:57: Glucometer 144H 01/03/21 08:02: Glucometer 148H 01/03/21 09:16: Blood Gas Puncture Site unk, Blood Gas Patient Temperature 36.6, Arterial Blood pH 7.41, Arterial Blood Partial Pressure CO2 41, Arterial Blood Partial Pressure O2 61L, Arterial Blood HCO3 25, Arterial Blood Total CO2 26.7, Arterial Blood Oxygen Saturation 89L, Arterial Blood Base Excess 1.1, Allan Test UNK, Blood Gas Ventilator Setting NO, Blood Gas Inspired Oxygen 30L 85% 01/03/21 10:20: Coronavirus 2019 (TRAVIS) Negative 01/03/21 12:12: Glucometer 165H Microbiology 01/03/21 Influenza Types A,B Antigen (NICA) - Final, Complete Laboratory Tests 01/01/21 14:35 01/02/21 03:55 01/03/21 03:00 A/P: Assessment: CAD - Ac ant wall STEMI on 01-01-21 - Card cath on 01-01-21: 99% prox and mid LAD stented with Karlene 3.0 x 28 (proximal) and 3.0 x 12 (mid vessel), mild plaque LCX, mild to mod plaque of dominant RCA, LVEDP 28 mmHg, LVEF approx 40%, apical hypokinesis - persistent ST elevation in ant leads after PCI, 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 LVEF 40% with apical hypokinesis/akinesis on card cath of 01-01-21; LVEF 35-40% with apical hypokinesis/akinesis on echo of 01-02-21 Cardiac risk factors - DM II, uncontrolled - H/o hypertension Bibasilar pneumonia vs atelectasis on CT chest of 3-20-21 Plan: * Complex management due to multiple comorbidities and symptoms * Appreciate help from the Hospitalist Sridhar * Keep under close observation * Monitor labs * I had a long and detailed discussion with him, his mother, and his daughter today and answered their questions in detail Clinical Quality Measures AMI/AHF: ASA po Prior to arrival: SORAYA Gregorio MD FACP FAC CCDS Jan 03, 2021 13:50
[2021-01-03] MEDS: TAMSULOSIN 0.4 MG (FLOMAX) CAP PO SCH (17:25)
[2021-01-03] MEDS: PIPERACILLIN/TAZOBACTAM (BULK) 4.5 GM in NS (IVPB) 100 ML IV SCH (17:25)
[2021-01-03] MEDS ORDERED: polyethylene glycoL POWDER 17 GM (MIRALAX) PACK PO PRN (18:15)
[2021-01-03] MEDS: SENNA W/DOCUSATE (SENOKOT S) TABLET PO SCH (20:41)
[2021-01-03] MEDS: DOCUSATE SODIUM 100 MG (COLACE) CAP PO SCH (20:41)
[2021-01-04] MEDS: inSUlin ASPART (NovoLOG) 1 UNIT/0.01 ML (CHARGE PER UNIT) SC SCH ×9 (00:35→20:17)
[2021-01-04] MEDS: PIPERACILLIN/TAZOBACTAM (BULK) 4.5 GM in NS (IVPB) 100 ML IV SCH ×3 (02:28→17:10)
[2021-01-04 03:13] LABS: BASOPHILS % (AUTO) 0 % (0-10); EOSINOPHILS # (AUTO) 0.1 10^3/uL (0.0-0.3); EOSINOPHILS % (AUTO) 1 % (0-10); HEMATOCRIT 39 % (40-54); HEMOGLOBIN 12.6 g/dL (13.3-17.7); LYMPHOCYTES # (AUTO) 2.6 10^3/uL (1.0-4.0); LYMPHOCYTES % (AUTO) 29 % (12-44); MEAN CORPUSCULAR HEMOGLOBIN 28 pg (25-34); MEAN CORPUSCULAR HGB CONC 33 g/dL (32-36); MEAN CORPUSCULAR VOLUME 87 fL (80-99); MONOCYTES % (AUTO) 11 % (0-12); NEUTROPHILS # (AUTO) 5.3 10^3/uL (1.8-7.8); NEUTROPHILS % (AUTO) 59 % (42-75); PLATELET COUNT 230 10^3/uL (130-400)
[2021-01-04 03:38] LABS: ALBUMIN 3.1 GM/DL (3.2-4.5); CHLORIDE 103 MMOL/L (98-107); SODIUM 137 MMOL/L (135-145)
[2021-01-04 03:40] LABS: GLUCOSE 141 MG/DL (70-105); TOTAL PROTEIN 6.7 GM/DL (6.4-8.2)
[2021-01-04 03:42] LABS: BILIRUBIN,TOTAL 0.9 MG/DL (0.1-1.0); CARBON DIOXIDE 23 MMOL/L (21-32)
[2021-01-04 03:44] LABS: ALKALINE PHOSPHATASE 81 U/L (40-136); CREATININE SERUM 0.86 MG/DL (0.60-1.30); GFR ESTIMATED > 60
[2021-01-04 03:45] LABS: BUN/CREATININE RATIO 30
[2021-01-04 03:47] LABS: ALANINE AMINOTRANSFERASE 13 U/L (0-55); MAGNESIUM 2.3 MG/DL (1.6-2.4)
[2021-01-04] MEDS: POTASSIUM CL 10MEQ/50ML IVPB 50 ML IV SCH (05:39)
[2021-01-04] MEDS: MAGNESIUM 1 GM/100 ML IVPB 100 ML IV SCH (05:40)
[2021-01-04] MEDS: KCL 20 MEQ TAB (K-DUR) PO SCH (05:40)
[2021-01-04] MEDS ORDERED: RT-ALBUTEROL/IPRATROPIUM 3 ML (DUONEB) VIAL ONE (07:31)
[2021-01-04 07:45] VITALS: BP 122/65
[2021-01-04] MEDS: RT-ALBUTEROL/IPRATROPIUM 3 ML (DUONEB) VIAL INH SCH ×5 (07:52→22:28)
[2021-01-04] MEDS ORDERED: RT-ALBUTEROL/IPRATROPIUM 3 ML (DUONEB) VIAL INH PRN (08:00)
[2021-01-04] MEDS: lisINopril 5 MG (PRINIVIL) TABLET PO SCH (08:09)
[2021-01-04] MEDS: PANTOPRAZOLE 40 MG (PROTONIX) TAB PO SCH (08:09)
[2021-01-04] MEDS: DOCUSATE SODIUM 100 MG (COLACE) CAP PO SCH ×2 (08:10→20:10)
[2021-01-04] MEDS: ENOXAPARIN 40 MG/0.4 ML (LOVENOX) SYR SC SCH (08:10)
[2021-01-04] MEDS: CLOPIDOGREL 75 MG (PLAVIX) TABLET PO SCH (08:10)
[2021-01-04] MEDS: PREGABALIN 75 MG (LYRICA) CAP PO SCH ×2 (08:10→20:09)
[2021-01-04] MEDS: FAMOTIDINE 20 MG (PEPCID) TABLET PO SCH ×2 (08:10→20:09)
[2021-01-04] MEDS: IBUPROFEN 600 MG (MOTRIN) TAB PO SCH ×3 (08:10→20:10)
[2021-01-04] MEDS: SENNA W/DOCUSATE (SENOKOT S) TABLET PO SCH ×2 (08:10→20:09)
[2021-01-04] MEDS: FINASTERIDE (PROSCAR) 5 MG TAB PO SCH (08:10)
[2021-01-04] MEDS: ASPIRIN 81 MG CHEW (CHILDREN'S ASA) PO SCH (08:10)
[2021-01-04 09:29] LABS: ABG BASE EXCESS 3.6 MMOL/L (-2.5-2.5); ABG OXYGEN SATURATION 95 % (94-100); ABG PCO2 33 MMHG (35-45); ABG PH 7.52 (7.37-7.43); ABG PO2 68 MMHG (79-93); ABG TCO2 27.6 MMOL/L (21.0-31.0)
[2021-01-04 09:30] LABS: ALLENS TEST YES-POS; VENTILATOR NO
[2021-01-04 09:31] LABS: INSPIRED O2 60%
[2021-01-04] MEDS ORDERED: FUROSEMIDE 40 MG/4 ML INJ (LASIX) IVP ONE (10:00)
--- NOTE | 2021-01-04 11:45 | Progress Note - Hospitalist ---
Subjective HPI/CC On Admission Date Seen by Provider: Jan 04, 2021 Time Seen by Provider: 09:50 Edgardo Villafana is a 60-year-old male with past medical history of hypertension, hyperlipidemia, insulin-dependent diabetes, BPH, who presented with chest pain and was admitted with ST elevation [place]. 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 Upon my examination he is feeling much better. He denies chest pain. He denies shortness of breath. He denies diaphoresis. He denies nausea and vomiting. He did have an episode of vomiting last night. Subjective/Events-last exam He reports feeling more short of breath this morning, but this improved with BiPAP. He feels like he got "hit by a truck". He reports fever. He is having cough and sputum production. Objective Exam Vital Signs Vital Signs Date Time Temp Pulse Resp B/P (MAP) Pulse Ox O2 Delivery O2 Flow Rate FiO2 01/04/21 10:05 94 Vapotherm 30.00 60 01/04/21 10:00 73 28 106/63 (77) 01/04/21 08:00 37.0 Capillary Refill : Less Than 3 Seconds General Appearance: No Apparent Distress, Obese, Other (Wearing BiPAP) Respiratory: No Respiratory Distress, Decreased Breath Sounds, Other (Wearing BiPAP) Cardiovascular: Regular Rate, Rhythm, No Edema, No Murmur Gastrointestinal: Normal Bowel Sounds, Non Tender, Soft Extremity: Normal Inspection, Non Tender, No Pedal Edema Neurologic/Psychiatric: Alert, Oriented x3, No Motor/Sensory Deficits, Normal Mood/Affect Skin: Normal Color, Warm/Dry Results/Procedures Lab Laboratory Tests 01/04/21 02:40 Patient resulted labs reviewed. Imaging: Reviewed Imaging Report Assessment/Plan Assessment and Plan Assess & Plan/Chief Complaint Acute respiratory failure with hypoxia Pneumonia Heart failure with reduced ejection fraction Required BiPAP this morning Transitioning back to Vapotherm Flu negative COVID TRAVIS negative CT Chest without PE, bibasilar consolidations Continue Zosyn Echo 01/02 with EF 35-40% Begin Lasix STEMI Pericarditis CAD HTN HLD Cardiology consulted, appreciate assistance Left heart cath revealed LAD stenosis and two stents were placed Continue ASA, Plavix, Lipitor, Metoprolol, and Lisinopril T2DM with hyperglycemia A1C 12.7% Levemir Novolog with meals Sliding scale insulin BPH Continue home meds Obesity Clinically significant, no acute management needs DVT prophylaxis: Lovenox Diagnosis/Problems Diagnosis/Problems (1) Acute respiratory failure with hypoxia Status: Acute (2) PNA (pneumonia) Status: Acute (3) Acute ST elevation myocardial infarction (STEMI) of anterior wall Status: Acute (4) CAD (coronary artery disease) Status: Acute Qualifiers: Coronary Disease-Associated Artery/Lesion type: [place] artery [place] vs. transplanted heart: [place] heart (5) HTN (hypertension) Status: Chronic Qualifiers: Hypertension type: essential hypertension Qualified Codes: I10 - Essential (primary) hypertension (6) HLD (hyperlipidemia) Status: Chronic (7) Obesity Status: Chronic Qualifiers: Obesity type: due to excess calories Serious obesity comorbidity presence: with serious comorbidity Body mass index: BMI 34.0-34.9 (8) BPH (benign prostatic hyperplasia) Status: Chronic (9) T2DM (type 2 diabetes mellitus) Status: Acute Qualifiers: Diabetes mellitus termite inspector insulin use: with termite inspector use Diabetes mellitus complication status: with hyperglycemia Qualified Codes: E11.65 - Type 2 diabetes mellitus with hyperglycemia; Z79.4 - alf (current) use of insulin Clinical Quality Measures AMI/AHF: ASA po Prior to arrival: ANDER Giraldo MD Jan 04, 2021 11:45
[2021-01-04] MEDS: ONDANSETRON 4 MG/2 ML (SDV) Z0FRAN IVP PRN (12:54)
--- NOTE | 2021-01-04 14:10 | Progress Note - Cardiology ---
Cardiology SOAP Progress Note Subjective: No cp No palp or syncope or shortness of breath at rest Continue to have nausea No vomiting today Gen malaise No abd pain or diarrhea. Has had some constipation Objective: I&O/Vital Signs 01/04/21 01/04/21 01/04/21 01/04/21 03:00 04:00 04:17 04:18 Temp 36.3 Pulse 72 72 Resp 20 18 B/P (MAP) 115/60 (78) 111/66 (81) Pulse Ox 91 92 O2 Delivery Vapotherm Vapotherm Vapotherm O2 Flow Rate 30.00 30.00 30.00 60.00 60.00 FiO2 70 01/04/21 01/04/21 01/04/21 01/04/21 05:00 06:00 07:00 07:00 Pulse 71 73 74 74 Resp 15 20 24 B/P (MAP) 117/69 (85) 119/64 (82) 122/65 (84) Pulse Ox 90 91 88 O2 Delivery Vapotherm Vapotherm Vapotherm O2 Flow Rate 30.00 30.00 30.00 60.00 60.00 60.00 01/04/21 01/04/21 01/04/21 01/04/21 07:09 07:45 07:53 08:00 Pulse 71 Resp 21 Pulse Ox 88 99 O2 Delivery Vapotherm NIV Bilevel NIV Bilevel O2 Flow Rate 30.00 60.00 60.00 FiO2 60 60 01/04/21 01/04/21 01/04/21 01/04/21 08:00 08:00 09:00 10:00 Temp 37.0 Pulse 75 73 73 Resp 16 18 28 B/P (MAP) 124/62 (82) 119/62 (81) 106/63 (77) Pulse Ox 99 98 98 O2 Delivery NIV Bilevel NIV Bilevel NIV Bilevel O2 Flow Rate 60.00 60.00 60.00 01/04/21 01/04/21 01/04/21 01/04/21 10:02 10:05 11:00 12:00 Temp 36.9 Pulse 76 Resp 24 B/P (MAP) 121/80 (94) Pulse Ox 94 98 O2 Delivery Vapotherm Vapotherm Vapotherm O2 Flow Rate 30.00 30.00 30.00 60.00 60.00 FiO2 60 3/01/04/21 01/04/21 01/04/21 12:00 12:00 13:00 13:00 Pulse 76 71 71 Resp 25 23 B/P (MAP) 118/68 (85) 105/65 (78) Pulse Ox 100 97 O2 Delivery Vapotherm Vapotherm Vapotherm O2 Flow Rate 30.00 25.00 30.00 60.00 60.00 FiO2 60 01/04/21 14:00 Pulse 73 Resp 24 B/P (MAP) 102/62 (75) Pulse Ox 100 O2 Delivery Vapotherm O2 Flow Rate 30.00 60.00 01/04/21 00:00 Intake Total 1260 ml Output Total 1750 ml Balance -490 ml Constitutional: AAO x 3, well-developed, well-nourished Respiratory: No accessory muscle use; other (good, bilateral air entry) Cardiovascular: regular rate-rhythm, S1 and S2, systolic murmur (soft [place] at card base) Gastrointestional: No tender; soft; No guarding, No rebound; audible bowel sounds Extremities: No clubbing, No cyanosis, No significant edema Neurologic/Psychiatric: oriented x 3, other (moves all limbs equally) Skin: warm/dry; No cool, No rash on exposed areas, No ulcerations on exposed areas Results/Procedures: Labs Laboratory Tests 01/03/21 17:16: Glucometer 200H 01/03/21 20:39: Glucometer 249H 01/04/21 00:31: Glucometer 188H 01/04/21 02:40: White Blood Count 9.0, Red Blood Count 4.43, Hemoglobin 12.6L, Hematocrit 39L, Mean Corpuscular Volume 87, Mean Corpuscular Hemoglobin 28, Mean Corpuscular Hemoglobin Concent 33, Red Cell Distribution Width 12.6, Platelet Count 230, Mean Platelet Volume 12.0, Immature Granulocyte % (Auto) 0, Neutrophils (%) (Auto) 59, Lymphocytes (%) (Auto) 29, Monocytes (%) (Auto) 11, Eosinophils (%) (Auto) 1, Basophils (%) (Auto) 0, Neutrophils # (Auto) 5.3, Lymphocytes # (Auto) 2.6, Monocytes # (Auto) 1.0, Eosinophils # (Auto) 0.1, Basophils # (Auto) 0.0, Immature Granulocyte # (Auto) 0.0, Sodium Level 137, Potassium Level 4.0, Chloride Level 103, Carbon Dioxide Level 23, Anion Gap 11, Blood Urea Nitrogen 26H, Creatinine 0.86, Estimat Glomerular Filtration Rate > 60, BUN/Creatinine Ratio 30, Glucose Level 141H, Calcium Level 9.0, Corrected Calcium 9.7, Phosphorus Level 3.0, Magnesium Level 2.3, Total Bilirubin 0.9, Aspartate Amino Transf (AST/SGOT) 19, Alanine Aminotransferase (ALT/SGPT) 13, Alkaline Phosphatase 81, Total Protein 6.7, Albumin 3.1L 01/04/21 05:33: Glucometer 128H 01/04/21 08:07: Glucometer 128H 01/04/21 09:13: Blood Gas Puncture Site R RADIAL, Blood Gas Patient Temperature 37.0, Arterial Blood pH 7.52H, Arterial Blood Partial Pressure CO2 33L, Arterial Blood Partial Pressure O2 68L, Arterial Blood HCO3 27, Arterial Blood Total CO2 27.6, Arterial Blood Oxygen Saturation 95, Arterial Blood Base Excess 3.6H, Allan Test YES-POS, Blood Gas Ventilator Setting NO, Blood Gas Inspired Oxygen 60% 01/04/21 12:23: Glucometer 186H Microbiology 01/03/21 Influenza Types A,B Antigen (NICA) - Final, Complete A/P: Assessment: Nausea and vomiting of unclear etiology. 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 LVEF 40% with apical hypokinesis/akinesis on card cath of 01-01-21; LVEF 35-40% with apical hypokinesis/akinesis on echo of 01-02-21 Cardiac risk factors - DM II, uncontrolled - H/o hypertension Bibasilar pneumonia vs atelectasis on CT chest of 01-03-21 Plan: * Complex management due to multiple comorbidities and symptoms * Appreciate help from the Hospitalist Svlio * Keep under close observation * Monitor labs * Increase ambulation Clinical Quality Measures AMI/AHF: ASA po Prior to arrival: SORAYA Gregorio MD FACP FAC CCDS Jan 04, 2021 14:10
[2021-01-04] MEDS ORDERED: APIXABAN 5 MG (ELIQUIS) TABLET PO ONE (15:15)
[2021-01-04] MEDS ORDERED: AMIODARONE INJECTION 150 MG in D5W 100 ML IVPB 100 ML IV ONE (15:15)
[2021-01-04] MEDS: AMIODARONE INJECTION 450 MG in D5W IV SOLUTION (EXCEL) 250 ML IV SCH ×2 (15:45→23:31)
[2021-01-04] MEDS: TAMSULOSIN 0.4 MG (FLOMAX) CAP PO SCH (17:10)
[2021-01-04] MEDS: APIXABAN 5 MG (ELIQUIS) TABLET PO SCH (22:58)
[2021-01-05] MEDS: inSUlin ASPART (NovoLOG) 1 UNIT/0.01 ML (CHARGE PER UNIT) SC SCH ×6 (01:00→20:20)
[2021-01-05] MEDS: RT-ALBUTEROL/IPRATROPIUM 3 ML (DUONEB) VIAL INH SCH ×6 (02:00→22:18)
[2021-01-05] MEDS: PIPERACILLIN/TAZOBACTAM (BULK) 4.5 GM in NS (IVPB) 100 ML IV SCH ×3 (02:30→18:21)
[2021-01-05 03:18] LABS: BASOPHILS % (AUTO) 1 % (0-10); EOSINOPHILS # (AUTO) 0.1 10^3/uL (0.0-0.3); EOSINOPHILS % (AUTO) 1 % (0-10); HEMATOCRIT 34 % (40-54); HEMOGLOBIN 10.7 g/dL (13.3-17.7); LYMPHOCYTES # (AUTO) 2.8 10^3/uL (1.0-4.0); LYMPHOCYTES % (AUTO) 32 % (12-44); MEAN CORPUSCULAR HEMOGLOBIN 28 pg (25-34); MEAN CORPUSCULAR HGB CONC 32 g/dL (32-36); MEAN CORPUSCULAR VOLUME 88 fL (80-99); MEAN PLATELET VOLUME 11.5 fL (9.0-12.2); MONOCYTES # (AUTO) 1.2 10^3/uL (0.0-1.0); MONOCYTES % (AUTO) 13 % (0-12); NEUTROPHILS # (AUTO) 4.7 10^3/uL (1.8-7.8); NEUTROPHILS % (AUTO) 53 % (42-75); PLATELET COUNT 224 10^3/uL (130-400); WHITE BLOOD COUNT 8.8 10^3/uL (4.3-11.0)
[2021-01-05 03:30] LABS: ALBUMIN 2.7 GM/DL (3.2-4.5); CHLORIDE 98 MMOL/L (98-107); POTASSIUM 3.7 MMOL/L (3.6-5.0); SODIUM 133 MMOL/L (135-145)
[2021-01-05 03:31] LABS: CALCIUM 8.3 MG/DL (8.5-10.1)
[2021-01-05 03:32] LABS: GLUCOSE 239 MG/DL (70-105); TOTAL PROTEIN 5.9 GM/DL (6.4-8.2)
[2021-01-05 03:33] LABS: CARBON DIOXIDE 23 MMOL/L (21-32)
[2021-01-05 03:34] LABS: BILIRUBIN,TOTAL 1.1 MG/DL (0.1-1.0)
[2021-01-05 03:35] LABS: ALKALINE PHOSPHATASE 77 U/L (40-136); PHOSPHORUS 4.6 MG/DL (2.3-4.7)
[2021-01-05 03:36] LABS: GFR ESTIMATED > 60
[2021-01-05 03:37] LABS: BUN/CREATININE RATIO 25
[2021-01-05 03:39] LABS: ALANINE AMINOTRANSFERASE 11 U/L (0-55); MAGNESIUM 2.1 MG/DL (1.6-2.4)
--- NOTE | 2021-01-05 05:18 | Pulmonary Consultation ---
History of Present Illness History of Present Illness Date Seen by Provider: Jan 05, 2021 Time Seen by Provider: 05:15 Date of Admission Allergies and Home Medications Allergies Coded Allergies: No Known Drug Allergies (Unverified , 01/01/21) Home Medications Aspirin 81 Mg Tablet.dr, 81 MG PO DAILY, (Reported) Atorvastatin Calcium 40 Mg Tablet, 40 MG PO HS, (Reported) Empagliflozin 10 Mg Tablet, 10 MG PO DAILY, (Reported) Escitalopram Oxalate 10 Mg Tablet, 10 MG PO HS, (Reported) Finasteride 5 Mg Tablet, 5 MG PO HS, (Reported) Insulin Aspart 300 Units/3 Ml Solution, 15 UNITS SQ TIDAC, (Reported) Insulin Detemir 100 Unit/1 Ml Insuln.pen, 40 UNITS SQ HS, (Reported) Lisinopril 10 Mg Tablet, 10 MG PO HS, (Reported) Pregabalin 75 Mg Capsule, 75 MG PO BID, (Reported) Tamsulosin HCl 0.4 Mg Cap, 0.4 MG PO HS, (Reported) Past [id number] Hx Past Med/Social Hx: Reviewed Nursing Past Med/Soc Hx Patient Social History Smoking Status: Never a Smoker Recent Infectious Disease Expo: No Have you traveled recently?: No Alcohol Use?: No Review of Systems Time Seen by Provider: 05:18 Sepsis Event Evaluation Height, Weight, BMI Height: '" Weight: lbs. oz. kg; 32.58 BMI Method: Exam Exam Vital Signs Date Time Temp Pulse Resp B/P (MAP) Pulse Ox O2 Delivery O2 Flow Rate FiO2 01/05/21 05:00 67 20 104/62 (76) 92 Nasal Cannula 3.00 01/05/21 04:00 96 Nasal Cannula 3.00 01/05/21 04:00 68 18 102/59 (73) 92 Nasal Cannula 3.00 01/05/21 03:00 67 18 106/58 (74) 99 Nasal Cannula 3.00 01/05/21 02:00 70 9 116/65 (82) 95 Nasal Cannula 3.00 01/05/21 02:00 99 High Flow N/C 3.00 01/05/21 01:00 68 01/05/21 01:00 68 25 109/57 (74) 98 Nasal Cannula 3.00 01/05/21 00:00 71 25 100/57 (71) 94 Nasal Cannula 3.00 01/05/21 00:00 96 Nasal Cannula 3.00 01/05/21 00:00 36.9 01/04/21 23:00 74 96/55 (69) 95 Nasal Cannula 3.00 01/04/21 22:28 99 High Flow N/C 3.00 01/04/21 22:00 69 23 93/52 (66) 96 Nasal Cannula 3.00 01/04/21 21:00 73 23 93/48 (63) 96 Nasal Cannula 3.00 01/04/21 20:00 36.6 01/04/21 20:00 76 23 89/44 (59) 97 Nasal Cannula 3.00 01/04/21 20:00 97 Nasal Cannula 3.00 01/04/21 19:04 99 High Flow N/C 3.00 01/04/21 19:00 72 01/04/21 19:00 71 23 87/41 (56) 96 Nasal Cannula 3.00 01/04/21 18:00 72 23 81/57 (65) 91 Nasal Cannula 3.00 01/04/21 17:00 104 12 105/52 (69) 92 Nasal Cannula 8.00 01/04/21 16:35 36.8 01/04/21 16:00 Nasal Cannula 3.00 01/04/21 16:00 122 12 97/61 (73) 93 Nasal Cannula 8.00 01/04/21 15:00 144 19 78/69 (72) 97 Nasal Cannula 8.00 01/04/21 14:10 99 High Flow N/C 10.00 01/04/21 14:00 73 24 102/62 (75) 100 Vapotherm 30.00 60.00 01/04/21 13:00 71 01/04/21 13:00 71 23 105/65 (78) 97 Vapotherm 30.00 60.00 01/04/21 12:00 Vapotherm 25.00 60 01/04/21 12:00 76 25 118/68 (85) 100 Vapotherm 30.00 60.00 01/04/21 12:00 36.9 01/04/21 11:00 76 24 121/80 (94) 98 Vapotherm 30.00 60.00 01/04/21 10:05 94 Vapotherm 30.00 60 01/04/21 10:02 Vapotherm 30.00 60.00 01/04/21 10:00 73 28 106/63 (77) 98 NIV Bilevel 60.00 01/04/21 09:00 73 18 119/62 (81) 98 NIV Bilevel 60.00 01/04/21 08:00 75 16 124/62 (82) 99 NIV Bilevel 60.00 01/04/21 08:00 37.0 01/04/21 08:00 NIV Bilevel 60 01/04/21 07:53 NIV Bilevel 60.00 01/04/21 07:45 71 21 99 60.00 01/04/21 07:09 88 Vapotherm 30.00 60 01/04/21 07:00 74 24 122/65 (84) 88 Vapotherm 30.00 60.00 01/04/21 07:00 74 01/04/21 06:00 73 20 119/64 (82) 91 Vapotherm 30.00 60.00 I & O 01/05/21 07:00 Intake Total 1350 ml Output Total 2600 ml Balance -1250 ml Height & Weight Height: '" Weight: lbs. oz. kg; 32.58 BMI Method: General Appearance: No Apparent Distress, Obese, Other (Wearing BiPAP) HEENT: PERRL/EOMI, Pharynx Normal Neck: Normal Inspection, Supple Respiratory: No Respiratory Distress, Decreased Breath Sounds, Other (Wearing BiPAP) Cardiovascular: Regular Rate, Rhythm, No Edema, No Murmur Capillary Refill: Less Than 3 Seconds Extremity: Normal Inspection, Non Tender, No Pedal Edema Neurologic/Psychiatric: Alert, Oriented x3, No Motor/Sensory Deficits, Normal Mood/Affect Skin: Normal Color, Warm/Dry Results Lab Laboratory Tests 01/04/21 02:40 01/05/21 03:08 Assessment/Plan Assessment/Plan Acute respiratory failure with hypoxia -BiPAP PRN -Currently on VC at 3 liters/min -Flu negative COVID TRAVIS negative CT Chest without PE, bibasilar consolidations Pneumonia -Zosyn Hyponatremia -Monitor Heart failure with reduced ejection fraction Echo 01/02 with EF 35-40% -Cardiology following -Eliquis STEMI -Left heart cath revealed LAD stenosis and two stents were placed ASA, Plavix, Lipitor, Metoprolol, and Lisinopril Pericarditis CAD HTN HLD T2DM with hyperglycemia A1C 12.7% Levemir Novolog with meals Sliding scale insulin BPH Continue home meds Obesity Clinically significant, no acute management needs DVT prophylaxis: CLAUDIA Guevara DO Jan 05, 2021 05:18
[2021-01-05] MEDS: POTASSIUM CL 10MEQ/50ML IVPB 50 ML IV SCH (05:31)
[2021-01-05] MEDS: MAGNESIUM 1 GM/100 ML IVPB 100 ML IV SCH (05:31)
[2021-01-05] MEDS: KCL 20 MEQ TAB (K-DUR) PO SCH (05:32)
[2021-01-05] MEDS: IBUPROFEN 600 MG (MOTRIN) TAB PO SCH ×3 (07:56→20:19)
[2021-01-05] MEDS: APIXABAN 5 MG (ELIQUIS) TABLET PO SCH ×2 (07:56→20:19)
[2021-01-05] MEDS: FAMOTIDINE 20 MG (PEPCID) TABLET PO SCH ×2 (07:56→20:19)
[2021-01-05] MEDS: FINASTERIDE (PROSCAR) 5 MG TAB PO SCH (07:56)
[2021-01-05] MEDS: lisINopril 5 MG (PRINIVIL) TABLET PO SCH (07:56)
[2021-01-05] MEDS: SENNA W/DOCUSATE (SENOKOT S) TABLET PO SCH ×3 (07:57→20:19)
[2021-01-05] MEDS: DOCUSATE SODIUM 100 MG (COLACE) CAP PO SCH ×3 (07:57→20:19)
[2021-01-05] MEDS: CLOPIDOGREL 75 MG (PLAVIX) TABLET PO SCH (07:57)
[2021-01-05] MEDS: ASPIRIN 81 MG CHEW (CHILDREN'S ASA) PO SCH (07:57)
[2021-01-05] MEDS: PREGABALIN 75 MG (LYRICA) CAP PO SCH ×2 (07:57→20:19)
--- NOTE | 2021-01-05 08:05 | Progress Note - Hospitalist ---
Subjective HPI/CC On Admission Date Seen by Provider: Jan 05, 2021 Time Seen by Provider: 07:58 Edgardo Villafana is a 60-year-old male with past medical history of hypertension, hyperlipidemia, insulin-dependent diabetes, BPH, who presented with chest pain and was admitted with ST elevation AR. He was taken to the [facility] and had two stents placed. Upon my examination he is feeling much better. He denies chest pain. He denies shortness of breath. He denies diaphoresis. He denies nausea and vomiting. He did have an episode of vomiting last night. Subjective/Events-last exam Pt laying in bed doing breathing treatments. Reports feeling much better. No complaints. Weaning down on oxygen and off BiPAP. Still on amio gtt. Objective Exam Vital Signs Vital Signs Date Time Temp Pulse Resp B/P (MAP) Pulse Ox O2 Delivery O2 Flow Rate FiO2 01/05/21 07:41 92 High Flow N/C 3.00 01/05/21 07:29 36.4 68 144 130/73 (92) 01/04/21 12:00 60 Capillary Refill : Less Than 3 Seconds General Appearance: No Apparent Distress, Obese Respiratory: Lungs Clear, No Accessory Muscle Use, Other (currently doing breathing treatment) Cardiovascular: Regular Rate, Rhythm, No Murmur Gastrointestinal: Normal Bowel Sounds, Non Tender, Soft Neurologic/Psychiatric: Alert, Oriented x3, Normal Mood/Affect Results/Procedures Lab Laboratory Tests 01/05/21 03:08 Patient resulted labs reviewed. Imaging: Reviewed Imaging Report Assessment/Plan Assessment and Plan Assess & Plan/Chief Complaint Acute respiratory failure with hypoxia Pneumonia Heart failure with reduced ejection fraction Doing well on nasal cannula now Flu negative COVID TRAVIS negative CT Chest without PE, bibasilar consolidations Continue Zosyn Echo 01/02 with EF 35-40% Continue Lasix STEMI Pericarditis CAD HTN HLD Cardiology managing, appreciate assistance Left heart cath revealed LAD stenosis and two stents were placed Continue ASA, Plavix, Lipitor, Metoprolol, and Lisinopril on Amio gtt T2DM with hyperglycemia A1C 12.7% Levemir Sliding scale insulin family at bedside reports BS normally very high (~500), currenlty in the 200s on amio gtt BPH Continue home meds Obesity Clinically significant, no acute management needs DVT prophylaxis: Lovenox Clinical Quality Measures AMI/AHF: ASA po Prior to arrival: No SWETHA,RANJEET M MD Jan 05, 2021 08:05
[2021-01-05] MEDS: PANTOPRAZOLE 40 MG (PROTONIX) TAB PO SCH (10:04)
--- NOTE | 2021-01-05 13:04 | Progress Note - Cardiology ---
Cardiology SOAP Progress Note Subjective: No n/v today No palp or syncope No cp Gen malaise and weakness No exertional shortness of breath Objective: I&O/Vital Signs 01/05/21 01/05/21 01/05/21 01/05/21 02:00 02:00 03:00 04:00 Pulse 70 67 68 Resp 9 18 18 B/P (MAP) 116/65 (82) 106/58 (74) 102/59 (73) Pulse Ox 99 95 99 92 O2 Delivery High Flow N/C Nasal Cannula Nasal Cannula Nasal Cannula O2 Flow Rate 3.00 3.00 3.00 3.00 01/05/21 01/05/21 01/05/21 01/05/21 04:00 05:00 06:00 06:48 Pulse 67 67 67 Resp 20 12 B/P (MAP) 104/62 (76) 124/65 (84) Pulse Ox 96 92 93 O2 Delivery Nasal Cannula Nasal Cannula Nasal Cannula O2 Flow Rate 3.00 3.00 1.00 01/05/21 01/05/21 01/05/21 01/05/21 07:29 07:41 08:00 08:05 Temp 36.4 Pulse 68 82 Resp 14 13 B/P (MAP) 130/73 (92) 147/83 (104) Pulse Ox 92 92 97 O2 Delivery Nasal Cannula High Flow N/C Nasal Cannula Nasal Cannula O2 Flow Rate 1.00 3.00 3.00 3.00 01/05/21 01/05/21 01/05/21 11:06 11:19 12:45 Temp 36.6 Pulse 69 120 Resp 16 B/P (MAP) 142/70 (94) Pulse Ox 92 O2 Delivery High Flow N/C Nasal Cannula O2 Flow Rate 2.00 3.00 01/05/21 00:00 Intake Total 1100 ml Output Total 1875 ml Balance -775 ml Constitutional: AAO x 3, well-developed, well-nourished Respiratory: No accessory muscle use; other (good, bilateral air entry) Cardiovascular: regular rate-rhythm, S1 and S2, systolic murmur (soft [place] at card base) Gastrointestional: No tender; soft; No guarding, No rebound; audible bowel donte nds Extremities: No clubbing, No cyanosis, No significant edema Neurologic/Psychiatric: oriented x 3, other (moves all limbs equally) Skin: warm/dry; No cool, No rash on exposed areas, No ulcerations on exposed areas Results/Procedures: Labs Laboratory Tests 01/04/21 17:01: Glucometer 190H 01/04/21 20:14: Glucometer 240H 01/05/21 03:08: White Blood Count 8.8, Red Blood Count 3.82L, Hemoglobin 10.7L, Hematocrit 34L, Mean Corpuscular Volume 88, Mean Corpuscular Hemoglobin 28, Mean Corpuscular Hemoglobin Concent 32, Red Cell Distribution Width 12.6, Platelet Count 224, Mean Platelet Volume 11.5, Immature Granulocyte % (Auto) 1, Neutrophils (%) (Auto) 53, Lymphocytes (%) (Auto) 32, Monocytes (%) (Auto) 13H, Eosinophils (%) (Auto) 1, Basophils (%) (Auto) 1, Neutrophils # (Auto) 4.7, Lymphocytes # (Auto) 2.8, Monocytes # (Auto) 1.2H, Eosinophils # (Auto) 0.1, Basophils # (Auto) 0.0, Immature Granulocyte # (Auto) 0.1, Sodium Level 133L, Potassium Level 3.7, Chloride Level 98, Carbon Dioxide Level 23, Anion Gap 12, Blood Urea Nitrogen 28H, Creatinine 1.10, Estimat Glomerular Filtration Rate > 60, BUN/Creatinine Ratio 25, Glucose Level 239H, Calcium Level 8.3L, Corrected Calcium 9.3, Phosphorus Level 4.6, Magnesium Level 2.1, Total Bilirubin 1.1H, Aspartate Amino Transf (AST/SGOT) 13, Alanine Aminotransferase (ALT/SGPT) 11, Alkaline Phosphatase 77, Total Protein 5.9L, Albumin 2.7L 01/05/21 10:21: Glucometer 311H Microbiology 01/03/21 Influenza Types A,B Antigen (NICA) - Final, Complete Laboratory Tests 01/04/21 02:40 01/05/21 03:08 A/P: Assessment: PAF Nausea and vomiting and constipation of unclear etiology. Hospitalist svce managing CAD - Ac ant wall STEMI on 01-01-21 - Card cath on 01-01-21: 99% prox and mid LAD stented with Karlene 3.0 x 28 (proximal) and 3.0 x 12 (mid vessel), mild plaque LCX, mild to mod plaque of dominant RCA, LVEDP 28 mmHg, LVEF approx 40%, apical hypokinesis - persistent ST elevation in ant leads after PCI, 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 LVEF 40% with apical hypokinesis/akinesis on card cath of 01-01-21; LVEF 35-40% with apical hypokinesis/akinesis on echo of 01-02-21 Cardiac risk factors - DM II, uncontrolled - H/o hypertension Bibasilar pneumonia vs atelectasis on CT chest of 01-03-21 Plan: * Complex management due to multiple comorbidities and symptoms * Appreciate help from the Hospitalist Sridhar * Amio to maintain NSR * Eliquis for stroke prophylaxis * ASA to continue for a week from PCI, along with Plavix and Eliquis. Then d/c ASA and continue Plavix and Eliquis. This would be reduce risk of bleed * Monitor labs * Increase ambulation * Transfer to floor * I discussed his CV issues with him and his family in detail Clinical Quality Measures AMI/AHF: ASA po Prior to arrival: SORAYA Gregorio MD FACP FACC CCDS Jan 05, 2021 13:04
[2021-01-05] MEDS: TAMSULOSIN 0.4 MG (FLOMAX) CAP PO SCH (18:21)
[2021-01-05] MEDS: AMIODARONE 200 MG (CORDARONE) TAB PO SCH (20:19)
[2021-01-05] MEDS: CARVEDILOL 12.5 MG (COREG) TABLET PO SCH (20:19)
[2021-01-06] MEDS: RT-ALBUTEROL/IPRATROPIUM 3 ML (DUONEB) VIAL INH SCH ×6 (02:56→21:08)
[2021-01-06] MEDS: PIPERACILLIN/TAZOBACTAM (BULK) 4.5 GM in NS (IVPB) 100 ML IV SCH ×3 (03:12→17:30)
[2021-01-06 05:05] LABS: BASOPHILS % (AUTO) 1 % (0-10); EOSINOPHILS # (AUTO) 0.2 10^3/uL (0.0-0.3); EOSINOPHILS % (AUTO) 2 % (0-10); HEMATOCRIT 36 % (40-54); HEMOGLOBIN 11.9 g/dL (13.3-17.7); LYMPHOCYTES % (AUTO) 25 % (12-44); MEAN CORPUSCULAR HEMOGLOBIN 28 pg (25-34); MEAN CORPUSCULAR HGB CONC 33 g/dL (32-36); MEAN CORPUSCULAR VOLUME 86 fL (80-99); MEAN PLATELET VOLUME 11.3 fL (9.0-12.2); MONOCYTES # (AUTO) 0.9 10^3/uL (0.0-1.0); MONOCYTES % (AUTO) 11 % (0-12); NEUTROPHILS # (AUTO) 5.1 10^3/uL (1.8-7.8); NEUTROPHILS % (AUTO) 61 % (42-75); PLATELET COUNT 266 10^3/uL (130-400); WHITE BLOOD COUNT 8.3 10^3/uL (4.3-11.0)
[2021-01-06 05:11] LABS: ALBUMIN 2.9 GM/DL (3.2-4.5); CHLORIDE 101 MMOL/L (98-107); POTASSIUM 3.8 MMOL/L (3.6-5.0); SODIUM 135 MMOL/L (135-145)
[2021-01-06 05:13] LABS: CALCIUM 8.7 MG/DL (8.5-10.1)
[2021-01-06 05:14] LABS: GLUCOSE 190 MG/DL (70-105); TOTAL PROTEIN 6.4 GM/DL (6.4-8.2)
[2021-01-06 05:15] LABS: CARBON DIOXIDE 23 MMOL/L (21-32)
[2021-01-06 05:16] LABS: BILIRUBIN,TOTAL 0.8 MG/DL (0.1-1.0)
[2021-01-06 05:17] LABS: ALKALINE PHOSPHATASE 82 U/L (40-136); CREATININE SERUM 0.82 MG/DL (0.60-1.30); GFR ESTIMATED > 60
[2021-01-06 05:18] LABS: BUN/CREATININE RATIO 24
[2021-01-06 05:20] LABS: ALANINE AMINOTRANSFERASE 12 U/L (0-55)
[2021-01-06] MEDS: inSUlin ASPART (NovoLOG) 1 UNIT/0.01 ML (CHARGE PER UNIT) SC SCH ×4 (06:22→22:01)
[2021-01-06] MEDS: APIXABAN 5 MG (ELIQUIS) TABLET PO SCH ×2 (08:38→20:54)
[2021-01-06] MEDS: PANTOPRAZOLE 40 MG (PROTONIX) TAB PO SCH (08:38)
[2021-01-06] MEDS: FAMOTIDINE 20 MG (PEPCID) TABLET PO SCH ×2 (08:38→20:54)
[2021-01-06] MEDS: DOCUSATE SODIUM 100 MG (COLACE) CAP PO SCH ×2 (08:38→20:54)
[2021-01-06] MEDS: PREGABALIN 75 MG (LYRICA) CAP PO SCH ×2 (08:38→20:54)
[2021-01-06] MEDS: lisINopril 5 MG (PRINIVIL) TABLET PO SCH (08:38)
[2021-01-06] MEDS: SENNA W/DOCUSATE (SENOKOT S) TABLET PO SCH ×2 (08:38→20:54)
[2021-01-06] MEDS: ASPIRIN 81 MG CHEW (CHILDREN'S ASA) PO SCH (08:38)
[2021-01-06] MEDS: CLOPIDOGREL 75 MG (PLAVIX) TABLET PO SCH (08:38)
[2021-01-06] MEDS: CARVEDILOL 12.5 MG (COREG) TABLET PO SCH ×2 (08:38→20:54)
[2021-01-06] MEDS: FINASTERIDE (PROSCAR) 5 MG TAB PO SCH (08:38)
[2021-01-06] MEDS: IBUPROFEN 600 MG (MOTRIN) TAB PO SCH ×3 (08:40→20:54)
[2021-01-06] MEDS: AMIODARONE 200 MG (CORDARONE) TAB PO SCH ×2 (08:42→20:57)
--- NOTE | 2021-01-06 11:22 | Progress Note - Cardiology ---
Cardiology SOAP Progress Note Subjective: Sitting up in the recliner at the bedside Family x 2 at the bedside States he has been up ambulating and feels well No c/o CP, SOB or palpitations Objective: I&O/Vital Signs 01/06/21 01/07/21 01/07/21 01/07/21 23:51 01:00 02:18 03:55 Temp 36.4 36.7 Pulse 67 69 110 Resp 16 17 B/P (MAP) 116/57 (76) 126/75 (92) Pulse Ox 83 84 O2 Delivery Room Air Room Air Room Air 01/07/21 01/07/21 06:35 08:00 Temp 35.5 Pulse 71 Resp 20 B/P (MAP) 133/58 (83) Pulse Ox 92 95 O2 Delivery Nasal Cannula Room Air O2 Flow Rate 3.00 01/06/21 23:59 Intake Total 1050 ml Output Total 1950 ml Balance -900 ml Constitutional: AAO x 3, well-developed, well-nourished Respiratory: other Cardiovascular: regular rate-rhythm, S1 and S2, systolic murmur Gastrointestional: soft, audible bowel sounds Extremities: No clubbing, No cyanosis, No significant edema Neurologic/Psychiatric: oriented x 3, other Skin: warm/dry Results/Procedures: Labs Laboratory Tests 01/06/21 10:52: Glucometer 223H 01/06/21 15:40: Glucometer 148H 01/06/21 20:18: Glucometer 174H 01/07/21 05:44: Glucometer 154H 01/07/21 05:45: White Blood Count 9.1, Red Blood Count 4.51, Hemoglobin 12.7L, Hematocrit 39L, Mean Corpuscular Volume 87, Mean Corpuscular Hemoglobin 28, Mean Corpuscular Hemoglobin Concent 33, Red Cell Distribution Width 12.5, Platelet Count 324, Mean Platelet Volume 11.2, Immature Granulocyte % (Auto) 1, Neutrophils (%) (Auto) 68, Lymphocytes (%) (Auto) 19, Monocytes (%) (Auto) 10, Eosinophils (%) (Auto) 2, Basophils (%) (Auto) 0, Neutrophils # (Auto) 6.2, Lymphocytes # (Auto) 1.8, Monocytes # (Auto) 0.9, Eosinophils # (Auto) 0.2, Basophils # (Auto) 0.0, Immature Granulocyte # (Auto) 0.1, Sodium Level 136, Potassium Level 3.6, Chloride Level 102, Carbon Dioxide Level 24, Anion Gap 10, Blood Urea Nitrogen 15, Creatinine 0.81, Estimat Glomerular Filtration Rate > 60, BUN/Creatinine Ratio 19, Glucose Level 159H, Calcium Level 8.7, Corrected Calcium 9.6, Total Bilirubin 0.8, Aspartate Amino Transf (AST/SGOT) 15, Alanine Aminotransferase (ALT/SGPT) 12, Alkaline Phosphatase 82, Total Protein 6.6, Albumin 2.9L Microbiology 01/03/21 Influenza Types A,B Antigen (NICA) - Final, Complete A/P: Assessment: PAF Nausea and vomiting and constipation of unclear etiology. 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 LVEF 40% with apical hypokinesis/akinesis on card cath of 01-01-21; LVEF 35-40% with apical hypokinesis/akinesis on echo of 01-02-21 Cardiac risk factors - DM II, uncontrolled - H/o hypertension Bibasilar pneumonia vs atelectasis on CT chest of 01-03-21 Plan: * Complex management due to multiple comorbidities and symptoms * Appreciate help from the Hospitalist Roselia * Amio to maintain NSR - currently SR * Eliquis for stroke prophylaxis * ASA to continue for a week from PCI, along with Plavix and Eliquis. Then d/c ASA and continue Plavix and Eliquis. This would be reduce risk of bleed * Monitor labs * Continue ambulation * I discussed his CV issues with him and his family in detail Clinical Quality Measures AMI/AHF: ASA po Prior to arrival: DARRYL Marquez Jan 06, 2021 11:22
[2021-01-06] MEDS ORDERED: AMOX-358 PO (12:30)
--- NOTE | 2021-01-06 12:37 | Progress Note - Hospitalist ---
Subjective HPI/CC On Admission Date Seen by Provider: Jan 06, 2021 Time Seen by Provider: 12:32 Edgardo Villafana is a 60-year-old male with past medical history of hypertension, hyperlipidemia, insulin-dependent diabetes, BPH, who presented with chest pain and was admitted with ST elevation [place]. He was taken to the [facility] and had two stents placed. Upon my examination he is feeling much better. He denies chest pain. He denies shortness of breath. He denies diaphoresis. He denies nausea and vomiting. He did have an episode of vomiting last night. Subjective/Events-last exam Pt reports doing well. Breathing better. No chest pain. Ready to get out of hospital. Objective Exam Vital Signs Vital Signs Date Time Temp Pulse Resp B/P (MAP) Pulse Ox O2 Delivery O2 Flow Rate FiO2 01/06/21 12:15 62 01/06/21 10:39 90 High Flow N/C 3.00 01/06/21 08:00 36.4 20 126/60 (82) 01/04/21 12:00 60 Capillary Refill : Less Than 3 SecondsLess Than 3 Seconds General Appearance: No Apparent Distress, WD/WN, Obese Respiratory: Lungs Clear, No Respiratory Distress Cardiovascular: Regular Rate, Rhythm, No Murmur Neurologic/Psychiatric: Alert, Oriented x3 Results/Procedures Lab Laboratory Tests 01/06/21 04:55 Patient resulted labs reviewed. Imaging: Reviewed Imaging Report Assessment/Plan Assessment and Plan Assess & Plan/Chief Complaint Acute respiratory failure with hypoxia Pneumonia Heart failure with reduced ejection fraction Doing well on nasal cannula now- home oxygen study ordered Flu negative COVID TRAVIS negative CT Chest without PE, bibasilar consolidations Continue Zosyn- transition to Augmentin on discharge Echo 01/02 with EF 35-40% Continue Lasix STEMI Pericarditis CAD HTN HLD Cardiology managing, appreciate assistance Left heart cath revealed LAD stenosis and two stents were placed Continue ASA, Plavix, Lipitor, Metoprolol, and Lisinopril on Amio orally T2DM with hyperglycemia A1C 12.7% Levemir Sliding scale insulin family at bedside reports BS normally very high (~500), currenlty in the 200s on amio gtt BPH Continue home meds Obesity Clinically significant, no acute management needs DVT prophylaxis: Lovenox Clinical Quality Measures AMI/AHF: ASA po Prior to arrival: RANJEET Croft MD Jan 06, 2021 12:37
--- NOTE | 2021-01-06 13:21 | Progress Note - Cardiology ---
Cardiology SOAP Progress Note Subjective: Feels better Nausea and vomiting have resolved No cp or palp or syncope No shortness of breath Gen malaise and weakness Objective: I&O/Vital Signs 01/06/21 01/06/21 01/06/21 01/06/21 02:57 04:00 06:37 06:53 Temp 36.6 Pulse 69 66 Resp 20 B/P (MAP) 109/63 (78) Pulse Ox 92 94 88 O2 Delivery High Flow N/C High Flow N/C High Flow N/C O2 Flow Rate 4.00 3.50 4.00 01/06/21 01/06/21 01/06/21 01/06/21 08:00 09:00 10:39 12:00 Temp 36.4 36.2 Pulse 70 63 Resp 20 20 B/P (MAP) 126/60 (82) 125/73 (90) Pulse Ox 94 90 95 O2 Delivery High Flow N/C Nasal Cannula High Flow N/C High Flow N/C O2 Flow Rate 3.50 5.00 3.00 3.50 01/06/21 01/06/21 12:15 12:39 Pulse 62 76 Pulse Ox 96 89 O2 Flow Rate 3.00 01/06/21 00:00 Intake Total 2500 ml Output Total 1400 ml Balance 1100 ml Constitutional: AAO x 3, well-developed, well-nourished Respiratory: other Cardiovascular: regular rate-rhythm, S1 and S2, systolic murmur Gastrointestional: soft, audible bowel sounds Extremities: No clubbing, No cyanosis, No significant edema Neurologic/Psychiatric: oriented x 3, other Skin: warm/dry Results/Procedures: Labs Laboratory Tests 01/05/21 15:54: Glucometer 350H 01/05/21 19:58: Glucometer 249H 01/06/21 04:55: White Blood Count 8.3, Red Blood Count 4.19L, Hemoglobin 11.9L, Hematocrit 36L, Mean Corpuscular Volume 86, Mean Corpuscular Hemoglobin 28, Mean Corpuscular Hemoglobin Concent 33, Red Cell Distribution Width 12.6, Platelet Count 266, Mean Platelet Volume 11.3, Immature Granulocyte % (Auto) 1, Neutrophils (%) (Auto) 61, Lymphocytes (%) (Auto) 25, Monocytes (%) (Auto) 11, Eosinophils (%) (Auto) 2, Basophils (%) (Auto) 1, Neutrophils # (Auto) 5.1, Lymphocytes # (Auto) 2.0, Monocytes # (Auto) 0.9, Eosinophils # (Auto) 0.2, Basophils # (Auto) 0.0, Immature Granulocyte # (Auto) 0.1, Sodium Level 135, Potassium Level 3.8, Chloride Level 101, Carbon Dioxide Level 23, Anion Gap 11, Blood Urea Nitrogen 20H, Creatinine 0.82, Estimat Glomerular Filtration Rate > 60, BUN/Creatinine Ratio 24, Glucose Level 190H, Calcium Level 8.7, Corrected Calcium 9.6, Total Bilirubin 0.8, Aspartate Amino Transf (AST/SGOT) 14, Alanine Aminotransferase (ALT/SGPT) 12, Alkaline Phosphatase 82, Total Protein 6.4, Albumin 2.9L 01/06/21 05:15: Glucometer 187H 01/06/21 10:52: Glucometer 223H Microbiology 01/03/21 Influenza Types A,B Antigen (NICA) - Final, Complete A/P: Assessment: PAF Nausea and vomiting and constipation of unclear etiology. 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 LVEF 40% with apical hypokinesis/akinesis on card cath of 01-01-21; LVEF 35-40% with apical hypokinesis/akinesis on echo of 01-02-21 Cardiac risk factors - DM II, uncontrolled - H/o hypertension Bibasilar pneumonia vs atelectasis on CT chest of 01-03-21 Plan: * He has had a complex post-LA course * Appreciate help from the Hospitalist Roselia * Christoph to maintain NSR - currently SR * Eliquis for stroke prophylaxis * ASA to continue for a week from PCI, along with Plavix and Eliquis. Then d/c ASA and continue Plavix and Eliquis. This would be reduce risk of bleed * Monitor labs * Continue ambulation * Echo tomorrow to reeval LVEF. If LVEF less than 35%, then consider Life Vest prior to d/c * I discussed his CV issues with him and her two daughters who were present Clinical Quality Measures AMI/AHF: ASA po Prior to arrival: SORAYA Gregorio MD FACP [facility] Jan 06, 2021 13:21
[2021-01-06] MEDS: TAMSULOSIN 0.4 MG (FLOMAX) CAP PO SCH (17:29)
[2021-01-07] MEDS: RT-ALBUTEROL/IPRATROPIUM 3 ML (DUONEB) VIAL INH SCH ×5 (02:18→14:48)
[2021-01-07] MEDS: PIPERACILLIN/TAZOBACTAM (BULK) 4.5 GM in NS (IVPB) 100 ML IV SCH ×2 (02:24→10:40)
[2021-01-07] MEDS: inSUlin ASPART (NovoLOG) 1 UNIT/0.01 ML (CHARGE PER UNIT) SC SCH ×2 (05:54→11:39)
[2021-01-07 06:12] LABS: BASOPHILS % (AUTO) 0 % (0-10); EOSINOPHILS # (AUTO) 0.2 10^3/uL (0.0-0.3); EOSINOPHILS % (AUTO) 2 % (0-10); HEMATOCRIT 39 % (40-54); HEMOGLOBIN 12.7 g/dL (13.3-17.7); LYMPHOCYTES # (AUTO) 1.8 10^3/uL (1.0-4.0); LYMPHOCYTES % (AUTO) 19 % (12-44); MEAN CORPUSCULAR HEMOGLOBIN 28 pg (25-34); MEAN CORPUSCULAR HGB CONC 33 g/dL (32-36); MEAN CORPUSCULAR VOLUME 87 fL (80-99); MEAN PLATELET VOLUME 11.2 fL (9.0-12.2); MONOCYTES # (AUTO) 0.9 10^3/uL (0.0-1.0); MONOCYTES % (AUTO) 10 % (0-12); NEUTROPHILS # (AUTO) 6.2 10^3/uL (1.8-7.8); NEUTROPHILS % (AUTO) 68 % (42-75); PLATELET COUNT 324 10^3/uL (130-400); WHITE BLOOD COUNT 9.1 10^3/uL (4.3-11.0)
[2021-01-07 06:17] LABS: ALBUMIN 2.9 GM/DL (3.2-4.5)
[2021-01-07 06:18] LABS: CHLORIDE 102 MMOL/L (98-107); POTASSIUM 3.6 MMOL/L (3.6-5.0); SODIUM 136 MMOL/L (135-145)
[2021-01-07 06:19] LABS: CALCIUM 8.7 MG/DL (8.5-10.1)
[2021-01-07 06:20] LABS: GLUCOSE 159 MG/DL (70-105); TOTAL PROTEIN 6.6 GM/DL (6.4-8.2)
[2021-01-07 06:21] LABS: CARBON DIOXIDE 24 MMOL/L (21-32)
[2021-01-07 06:22] LABS: BILIRUBIN,TOTAL 0.8 MG/DL (0.1-1.0)
[2021-01-07 06:23] LABS: ALKALINE PHOSPHATASE 82 U/L (40-136)
[2021-01-07 06:24] LABS: CREATININE SERUM 0.81 MG/DL (0.60-1.30); GFR ESTIMATED > 60
[2021-01-07 06:25] LABS: BUN/CREATININE RATIO 19
[2021-01-07 06:27] LABS: ALANINE AMINOTRANSFERASE 12 U/L (0-55)
[2021-01-07] MEDS: APIXABAN 5 MG (ELIQUIS) TABLET PO SCH (08:59)
[2021-01-07] MEDS: DOCUSATE SODIUM 100 MG (COLACE) CAP PO SCH (08:59)
[2021-01-07] MEDS: FAMOTIDINE 20 MG (PEPCID) TABLET PO SCH (08:59)
[2021-01-07] MEDS: AMIODARONE 200 MG (CORDARONE) TAB PO SCH (08:59)
[2021-01-07] MEDS: IBUPROFEN 600 MG (MOTRIN) TAB PO SCH ×2 (08:59→13:47)
[2021-01-07] MEDS: CARVEDILOL 12.5 MG (COREG) TABLET PO SCH (08:59)
[2021-01-07] MEDS: lisINopril 5 MG (PRINIVIL) TABLET PO SCH (08:59)
[2021-01-07] MEDS: ASPIRIN 81 MG CHEW (CHILDREN'S ASA) PO SCH (08:59)
[2021-01-07] MEDS: FINASTERIDE (PROSCAR) 5 MG TAB PO SCH (08:59)
[2021-01-07] MEDS: CLOPIDOGREL 75 MG (PLAVIX) TABLET PO SCH (08:59)
[2021-01-07] MEDS: SENNA W/DOCUSATE (SENOKOT S) TABLET PO SCH (08:59)
[2021-01-07] MEDS: PREGABALIN 75 MG (LYRICA) CAP PO SCH (08:59)
[2021-01-07] MEDS: PANTOPRAZOLE 40 MG (PROTONIX) TAB PO SCH (09:00)
[2021-01-07] MEDS ORDERED: AMIO400T5 PO (10:02)
[2021-01-07] MEDS ORDERED: CARV12.53 PO (10:02)
[2021-01-07] MEDS ORDERED: ATOR80TA76 PO (10:02)
[2021-01-07] MEDS ORDERED: LISI-729 PO (10:02)
[2021-01-07] MEDS ORDERED: CLOP75TA28 PO (10:02)
[2021-01-07] MEDS ORDERED: APIX5TAB PO (10:02)
--- NOTE | 2021-01-07 10:04 | Progress Note - Cardiology ---
Cardiology SOAP Progress Note Objective: I&O/Vital Signs Constitutional: AAO x 3, well-developed, well-nourished Respiratory: other Cardiovascular: regular rate-rhythm, S1 and S2, systolic murmur Gastrointestional: soft, audible bowel sounds Extremities: No clubbing, No cyanosis, No significant edema Neurologic/Psychiatric: oriented x 3, other Skin: warm/dry Results/Procedures: Labs Microbiology 01/03/21 Influenza Types A,B Antigen (NICA) - Final, Complete A/P: Assessment: PAF Nausea and vomiting and constipation of unclear etiology. 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 LVEF 40% with apical hypokinesis/akinesis on card cath of 01-01-21; LVEF 35-40% with apical hypokinesis/akinesis on echo of 01-02-21 Cardiac risk factors - DM II, uncontrolled - H/o hypertension Bibasilar pneumonia vs atelectasis on CT chest of 01-03-21 Plan: * He has had a complex post-AZ course * Appreciate help from the Hospitalist Roselia * Amio to maintain NSR - currently SR * Continue Eliquis for stroke prophylaxis * ASA has been completed for one week, we have stopped ASA and will continue Plavix and Eliquis. This would be reduce risk of bleed * Monitor labs * Echo tomorrow to reeval LVEF. If LVEF less than 35%, then consider Life Vest prior to d/c - echo pending * I discussed his CV issues with him and her two daughters who were present Clinical Quality Measures AMI/AHF: ASA po Prior to arrival: DARRYL Marquez Jan 07, 2021 10:04
[2021-01-07] MEDS ORDERED: RT-ALBUINH IH (10:40)
--- NOTE | 2021-01-07 11:01 | Progress Note - Hospitalist ---
Subjective HPI/CC On Admission Date Seen by Provider: Jan 07, 2021 Time Seen by Provider: 10:56 Edgardo Villafana is a 60-year-old male with past medical history of hypertension, hyperlipidemia, insulin-dependent diabetes, BPH, who presented with chest pain and was admitted with ST elevation OR. He was taken to the [facility] and had two stents placed. Upon my examination he is feeling much better. He denies chest pain. He denies shortness of breath. He denies diaphoresis. He denies nausea and vomiting. He did have an episode of vomiting last night. Subjective/Events-last exam Pt reports feeling well. No complaints. Hopeful for DC today. We discussed nocturnal oximetry results. He is agreeable to oxygen use at night. Objective Exam Vital Signs Vital Signs Date Time Temp Pulse Resp B/P (MAP) Pulse Ox O2 Delivery O2 Flow Rate FiO2 01/07/21 10:24 91 Room Air 01/07/21 09:00 3.00 01/07/21 08:00 35.5 71 20 133/58 (83) 01/04/21 12:00 60 Capillary Refill : Less Than 3 SecondsLess Than 3 Seconds General Appearance: No Apparent Distress, WD/WN Respiratory: Lungs Clear, No Respiratory Distress Cardiovascular: Regular Rate, Rhythm, No Murmur Gastrointestinal: Normal Bowel Sounds, Soft Neurologic/Psychiatric: Alert, Oriented x3 Results/Procedures Lab Laboratory Tests 01/07/21 05:45 Patient resulted labs reviewed. Imaging: Reviewed Imaging Report Assessment/Plan Assessment and Plan Assess & Plan/Chief Complaint Acute respiratory failure with hypoxia Pneumonia Heart failure with reduced ejection fraction Doing well on nasal cannula now- home oxygen study ordered Flu negative COVID TRAVIS negative CT Chest without PE, bibasilar consolidations Continue Zosyn- transition to Augmentin on discharge Echo 01/02 with EF 35-40% Continue Lasix Nocturnal oximetry reveals 2lpm need due to over 120 events with sats in the 70s and low 80s with subsequent drop in heart rate STEMI Pericarditis CAD HTN HLD Cardiology managing, appreciate assistance Left heart cath revealed LAD stenosis and two stents were placed Continue ASA, Plavix, Lipitor, Metoprolol, and Lisinopril on Amio orally T2DM with hyperglycemia A1C 12.7% Levemir Sliding scale insulin BPH Continue home meds Obesity Clinically significant, no acute management needs DVT prophylaxis: Lovenox Clinical Quality Measures AMI/AHF: ASA po Prior to arrival: RANJEET Croft MD Jan 07, 2021 11:01
--- NOTE | 2021-01-07 19:09 | Progress Note - Cardiology ---
Cardiology SOAP Progress Note Subjective: No cp or palp or syncope or shortness of breath No n/v/d No focal weakness No swelling Feels well and wishes to go home Objective: I&O/Vital Signs 01/07/21 01/07/21 01/07/21 01/07/21 08:00 09:00 10:24 12:00 Temp 35.5 36.2 Pulse 71 69 Resp 20 16 B/P (MAP) 133/58 (83) 114/56 (75) Pulse Ox 95 91 91 O2 Delivery Room Air Nasal Cannula Room Air Room Air O2 Flow Rate 3.00 01/07/21 01/07/21 01/07/21 12:39 14:48 15:14 Pulse 67 B/P (MAP) Pulse Ox 91 O2 Delivery Room Air 01/07/21 00:00 Intake Total 1050 ml Output Total 1950 ml Balance -900 ml Constitutional: AAO x 3, well-developed, well-nourished Respiratory: other Cardiovascular: regular rate-rhythm, S1 and S2, systolic murmur Gastrointestional: soft, audible bowel sounds Extremities: No clubbing, No cyanosis, No significant edema Neurologic/Psychiatric: oriented x 3, other Skin: warm/dry Results/Procedures: Labs Laboratory Tests 01/06/21 20:18: Glucometer 174H 01/07/21 05:44: Glucometer 154H 01/07/21 05:45: White Blood Count 9.1, Red Blood Count 4.51, Hemoglobin 12.7L, Hematocrit 39L, Mean Corpuscular Volume 87, Mean Corpuscular Hemoglobin 28, Mean Corpuscular Hemoglobin Concent 33, Red Cell Distribution Width 12.5, Platelet Count 324, Mean Platelet Volume 11.2, Immature Granulocyte % (Auto) 1, Neutrophils (%) (Auto) 68, Lymphocytes (%) (Auto) 19, Monocytes (%) (Auto) 10, Eosinophils (%) (Auto) 2, Basophils (%) (Auto) 0, Neutrophils # (Auto) 6.2, Lymphocytes # (Auto) 1.8, Monocytes # (Auto) 0.9, Eosinophils # (Auto) 0.2, Basophils # (Auto) 0.0, Immature Granulocyte # (Auto) 0.1, Sodium Level 136, Potassium Level 3.6, Chlori de Level 102, Carbon Dioxide Level 24, Anion Gap 10, Blood Urea Nitrogen 15, Creatinine 0.81, Estimat Glomerular Filtration Rate > 60, BUN/Creatinine Ratio 19, Glucose Level 159H, Calcium Level 8.7, Corrected Calcium 9.6, Total Bilirubin 0.8, Aspartate Amino Transf (AST/SGOT) 15, Alanine Aminotransferase (ALT/SGPT) 12, Alkaline Phosphatase 82, Total Protein 6.6, Albumin 2.9L 01/07/21 10:55: Glucometer 263H Microbiology 01/03/21 Influenza Types A,B Antigen (NICA) - Final, Complete Laboratory Tests 01/06/21 04:55 01/07/21 05:45 A/P: Assessment: CAD - Ac ant wall STEMI on 01-01-21 - Card cath on 01-01-21: 99% prox and mid LAD stented with Karlene 3.0 x 28 (proximal) and 3.0 x 12 (mid vessel), mild plaque LCX, mild to mod plaque of dominant RCA, LVEDP 28 mmHg, LVEF approx 40%, apical hypokinesis Post- LA issues - PAF, currently NSR - Nausea and vomiting, currently resolved - Suspected post-infarct pericarditis, clinically resolved Ischemic cardiomyopathy. LVEF 40% with apical hypokinesis/akinesis on card cath of 01-01-21; LVEF 40-45% with apical hypokinesis/akinesis on echo of 01-07-21 Cardiac risk factors - DM II, uncontrolled - H/o hypertension Bibasilar pneumonia vs atelectasis on CT chest of 01-03-21, treated by the Hospitalist Sridhar during this hospitalization Plan: * He has had a complex post-LA course * I have had long and detailed discussion with him and his family regarding his LA, its complications, and our treatment plan * We recommend close clinical f/u. He states he will f/u with a local rehab manager at his place of residence in [facility] * Amio to maintain NSR - currently SR * Continue Eliquis for stroke prophylaxis * ASA has been completed for one week, we have stopped ASA and will continue Plavix and Eliquis. This is to reduce risk of bleed Clinical Quality Measures AMI/AHF: ASA po Prior to arrival: SORAYA Gregorio MD FACP [facility] Jan 07, 2021 19:09
--- NOTE | 2021-01-07 19:11 | Cardiology Discharge Summary ---
Diagnosis/Chief Complaint Date of Admission Jan 01, 2021 at 16:20 Date of Discharge Jan 07, 2021 at 15:00 Final/Discharge Diagnosis CAD - Ac ant wall STEMI on 01-01-21 - Card cath on 01-01-21: 99% prox and mid LAD stented with Karlene 3.0 x 28 (proximal) and 3.0 x 12 (mid vessel), mild plaque LCX, mild to mod plaque of dominant RCA, LVEDP 28 mmHg, LVEF approx 40%, apical hypokinesis Post- [place] issues - PAF, currently NSR - Nausea and vomiting, currently resolved - Suspected post-infarct pericarditis, clinically resolved Ischemic cardiomyopathy. LVEF 40% with apical hypokinesis/akinesis on card cath of 01-01-21; LVEF 40-45% with apical hypokinesis/akinesis on echo of 01-07-21 Cardiac risk factors - DM II, uncontrolled - H/o hypertension Bibasilar pneumonia vs atelectasis on CT chest of 01-03-21, treated by the [facility] during this hospitalization Chief Complaint/HPI Chief Complaint/HPI CC: Chest discomfort HPI 60 yo man who has been having intermittent chest discomfort for the last several days that have been lasting up to several hours. Discomfort has varied between mild and severe, located in mid chest, feeling of pressure, radiating to back and shoulders, not associated with other symptoms. Was worse today. Came to urgent care and was sent to ED. Found to have marked ST elevation in anterior leads. Underwent emergency card cath and primary intervention to severely diseased prox LAD. Denies shortness of breath or palp or syncope. Denies n/v/d. Denies focal weakness. Notes gen malaise. Please see the note of 01/07/21 for condition at discharge. Discharge Summary Discussion & Recommendations Home Medications Reviewed patient Home Medication Reconciliation performed by pharmacy medication reconciliations pc network technician and/or nursing. Patients Allergies have been reviewed. Discharge Home Medications: Reviewed and agree with Discharge Medication list on patient's Discharge Instruction sheet Clinical Quality Measures AMI/AHF: ASA po Prior to arrival: SORAYA Gregorio MD FACP [facility] Jan 07, 2021 19:11
== END 2021-01-07 15:00 | disposition home or self-care (01) | DRG 246 ==
LOC: ER 14:31 → CATH 15:03 → ICU 16:20 → 4TH 01-05 15:11
PROVIDERS: ADMIT Internal Medicine Cardiovascular Disease; ATTEND Internal Medicine Cardiovascular Disease
PROC: 027034Z Dilation of Coronary Artery, One Artery with Drug-eluting Intraluminal Device, Percutaneous Approach (ICD-10-PCS; principal; 2021-01-01)
PROC: 4A023N7 Measurement of Cardiac Sampling and Pressure, Left Heart, Percutaneous Approach (ICD-10-PCS; 2021-01-01)
PROC: B2111ZZ Fluoroscopy of Multiple Coronary Arteries using Low Osmolar Contrast (ICD-10-PCS; 2021-01-01)
PROC: B2151ZZ Fluoroscopy of Left Heart using Low Osmolar Contrast (ICD-10-PCS; 2021-01-01)
PROC: 5A09357 Assistance with Respiratory Ventilation, Less than 24 Consecutive Hours, Continuous Positive Airway Pressure (ICD-10-PCS; 2021-01-04)
DX: I21.09 ST elevation (STEMI) myocardial infarction involving other coronary artery of anterior wall (principal); J18.9 Pneumonia, unspecified organism; J96.01 Acute respiratory failure with hypoxia; I50.21 Acute systolic (congestive) heart failure; I31.9 Disease of pericardium, unspecified; E87.1 Hypo-osmolality and hyponatremia; I25.10 Atherosclerotic heart disease of native coronary artery without angina pectoris; E78.5 Hyperlipidemia, unspecified; N40.0 Benign prostatic hyperplasia without lower urinary tract symptoms; E11.65 Type 2 diabetes mellitus with hyperglycemia; E66.9 Obesity, unspecified; Z68.34 Body mass index [BMI] 34.0-34.9, adult; Z79.4 Long term (current) use of insulin; Z79.82 Long term (current) use of aspirin; Z20.822 Contact with and (suspected) exposure to COVID-19; I48.0 Paroxysmal atrial fibrillation; I25.5 Ischemic cardiomyopathy; I11.0 Hypertensive heart disease with heart failure
CPT/HCPCS: 36415; 36600; 71045; 71275; 80048; 80053; 80061; 82805; 82962; 83036; 83735; 83874; 83880; 84100; 84145; 84484; 85025; 85027; 85379; 85610; 85730; 87081; 87635; 87804; 93005; 93041; 93306; 93458; 93567; 94640; 94660; 94760; 94761; 96374